=== PATIENT | female | born 1990 | race Caucasian/White ===

== ENCOUNTER 2020-07-08 10:51 | Emergency (ER) | payer BC, SELFPAY ==
[2020-07-08 11:05] VITALS: BP 143/110; PULSE 95; RESP 16; TEMP 36.6; O2SAT 100
--- NOTE | 2020-07-08 11:06 | ED.GENADULT ---
HPI - General Adult General Chief complaint: Ear Stated complaint: ear infection Time Seen by Provider: 07/08/20 11:07 Source: patient and RN notes reviewed Mode of arrival: ambulatory Limitations: no limitations History of Present Illness HPI narrative: 29-year-old female presents with complaints of left ear pain for 1 day. Regine reports increasing ear pressure and pain throughout the night. Hydroperoxide and Advil without relief. Denies swimming or getting water into ear. Denies URI symptoms, No high fevers. Denies injury to the ear. No nasal drainage and congestion. Denies nausea, vomiting, tinnitus, and dizziness. Tolerating po intake well. LMP unknown due to Nexplanon implant control. The patient reports she have not been diagnosed with COVID-19. The patient reports she received 2 [employer]ocom COVID-19 vaccines 5 months ago. The patient reports she is not waiting for the results of a COVID-19 lab test. The patient reports she do not have chills, weakness, or fatigue. The patient reports she do not have a new or worsening cough or shortness of breath. Denies chest pain. The patient reports she do not have any rhinorrhea, congestion, loss of taste or smell, sore throat, abdominal pain, and diarrhea. Denies recent traveling. Denies concerns for COVID-19 or exposures been home with limited outdoor exposure except for essential household needs, work, and return home. At this time, patient is not suspected of having COVID-19. Some parts of this dictation were generated by voice recognition software and may contain typographical and/or grammatical inaccuracies. Related Data Home Medications Medication Instructions Recorded Confirmed albuterol sulfate [ProAir HFA] 1 inh INHALATION QID PRN 07/08/20 07/08/20 metformin 500 mg PO BID 07/08/20 07/08/20 Allergies Allergy/AdvReac Type Severity Reaction Status Date / Time ibuprofen Allergy Unknown Hives / Verified 11/27/18 20:23 Red Face No Known Allergies Allergy Unknown Unverified 11/27/18 20:23 Review of Systems Review of Systems: Narrative: CONSTITUTIONAL: Denies fever, chills, sweats. EYES: Denies visual changes, redness, discharge. ENT: Denies rhinorrhea, congestion, sore throat, ear drainage, itching. Complains of LT otalgia. CARDIOVASCULAR: Denies chest pain, palpitations, edema. RESPIRATORY: Denies dyspnea, wheezing, cough. GASTROINTESTINAL: Denies abdominal pain, nausea, vomiting, diarrhea. SKIN: Denies rash or itching. MUSCULOSKELETAL: Denies acute back pain, joint pain, or myalgia. NEUROLOGIC: Denies numbness or focal weakness. PSYCHIATRIC: Denies anxiety or depression. All systems reviewed & are unremarkable except as noted in HPI and below. [facility] Past Medical History Medical History (Updated 07/09/20 @ 00:00 by Huseyin Silva) Asthma History of prediabetes Morbid obesity Nexplanon in place PCOS (polycystic ovarian syndrome) Surgical History Surgical History (Updated 07/08/20 @ 11:51 by ANISA Baxter) No significant past surgical history Family History Family History Father Hypertension Family history of diabetes mellitus in first degree relative Sibling Patient's sister is in good health Mother Family history of diabetes mellitus in first degree relative Other Diabetes mellitus Social History Social History (Updated 07/08/20 @ 11:51 by ANISA Baxter) Smoking status: Never smoker Tobacco type: cigarettes Second hand tobacco smoke exposure: No Alcohol intake: current Substance use: never Living arrangements: with family Occupation/Education: occupation Gender identity (if verbalized by the patient): Female Comments At time of signature, I have reviewed and agree with nursing past medical, surgical, social, and family history. Please see nursing chart for further information. There is no relevant family history pertine
--- NOTE | 2020-07-08 11:21 | PC.NURSE ---
Left ear irrigated by Vinayak Black NP with warm and water and H2O2
== END 2020-07-08 11:34 | disposition home or self-care (01) ==
PROVIDERS: Emergency Provider Nurse Practitioner Family; PCP Physician Assistant
DX: H66.92 Otitis media, unspecified, left ear (principal); H61.22 Impacted cerumen, left ear; J45.909 Unspecified asthma, uncomplicated; E28.2 Polycystic ovarian syndrome; R73.03 Prediabetes; E66.01 Morbid (severe) obesity due to excess calories; Z68.44 Body mass index [BMI] 60.0-69.9, adult
CPT/HCPCS: 69210; 99213; G0463

== ENCOUNTER → 2021-03-08 04:07 | Outpatient (CLI) | payer BC, SELFPAY ==
[2021-03-08 20:23] LABS: SARS-CoV-2 RNA PCR Positive
== END ==
PROVIDERS: PCP Physician Assistant; Visit Provider Physician Assistant
DX: U07.1 COVID-19 (principal)
CPT/HCPCS: C9803; U0003; U0005

== ENCOUNTER 2022-08-21 12:45 | Emergency (ER) | payer OTHER, SELFPAY ==
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
[2022-08-21 12:59] VITALS: BP 140/97; PULSE 100; RESP 17; TEMP 36.6; O2SAT 100
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
[2022-08-21 14:07] LABS: Anion Gap 5 mmol/L (8-16); Blood Urea Nitrogen 8 mg/dL (7-17); Calcium 8.9 mg/dL (8.4-10.2); Carbon Dioxide 25 mmol/L (22-30); Chloride 105 mmol/L (98-107); Estimated CRCL calculation 227 ml/min; Estimated Glomerular Filt Rate > 60; Glucose 280 mg/dL (65-110); Potassium 4.3 mmol/L (3.4-5.0); Sodium 135 mmol/L (137-145)
== END 2022-08-21 16:14 | disposition home or self-care (01) ==
PROVIDERS: Emergency Provider Preventive Medicine Aerospace Medicine; PCP Physician Assistant
DX: S20.01XA Contusion of right breast, initial encounter (principal); S10.93XA Contusion of unspecified part of neck, initial encounter; V89.2XXA Person injured in unspecified motor-vehicle accident, traffic, initial encounter; W22.11XA Striking against or struck by driver side automobile airbag, initial encounter; J45.909 Unspecified asthma, uncomplicated; M41.9 Scoliosis, unspecified; E66.01 Morbid (severe) obesity due to excess calories; Z68.43 Body mass index [BMI] 50.0-59.9, adult
CPT/HCPCS: 36415; 70498; 71250; 80048; 81025; 99284; Q9967

== ENCOUNTER 2023-07-11 16:42 | Emergency (ER) | payer OTHER, SELFPAY ==
--- NOTE | ~2023-07-11 | CT_ITS ---
EXAMINATION: CTA brain carotid DATE: 07/11/2023 19:29 INDICATION: headache, recent chiropractic treatment TECHNIQUE: Computed tomographic angiography (CTA) of the head was performed without and with 100 mL O mnipaque-350 intravenous contrast. CTA of the neck was performed with intravenous contrast. The dose- length product was 1666.34 mGy-cm. Maximum intensity projection and volume rendered 3D-reconstruction s were created by the technologist on a separate workstation. COMPARISON: CTA neck 08/21/2022. FINDINGS: CT BRAIN: No acute large vessel infarct, intracranial hemorrhage, mass, or hydrocephalus. CTA HEAD: No large vessel occlusion, aneurysm, high flow vascular malformation, nidus or extravasation. CTA NECK: Aortic arch and proximal great vessels: Normal arch anatomy. Right common carotid, carotid bifurcation, and internal carotid artery: Mild noncalcified plaque at t he bifurcation.There is 0% stenosis of the proximal right internal carotid artery relative to normal distal artery lumen diameter (NASCET criteria). Left common carotid, carotid bifurcation, and internal carotid artery: Mild calcified and noncalcifie d plaque at the bifurcation.There is 0% stenosis of the proximal left internal carotid artery relativ e to normal distal artery lumen diameter (NASCET criteria). Vertebral arteries: No significant plaque or stenosis. Left vertebral artery is dominant. 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 IMPRESSION: No acute intracranial process. No large vessel intracranial occlusion, high-grade intracranial stenosis, or aneurysm. No carotid or vertebral artery occlusion, dissection, or significant stenosis. 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 Multiple left thyroid nodules, recommend outpatient thyroid ultrasound for further characterization Reviewed, dictated and finalized at location K. IMPRESSION: No acute intracranial process. No large vessel intracranial occlusion, high-grade intracranial stenosis, or an eurysm. No carotid or vertebral artery occlusion, dissection, or significant stenosis. 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 Mu ltilevel upper thoracic butterfly vertebral bodies. Multiple left thyroid nodules, recommend outpatient thyroid ultrasound for furt her characterization
[2023-07-11 16:47] VITALS: BP 181/114; PULSE 122; RESP 16; TEMP 36.6; O2SAT 98
--- NOTE | 2023-07-11 17:29 | ED.GENADULT ---
HPI - General Adult General Chief complaint: Headache Stated complaint: headache, vision changes Time Seen by Provider: 07/11/23 16:57 Source: patient Mode of arrival: ambulatory Limitations: no limitations History of Present Illness HPI narrative: This is a 32-year-old female with PMH of asthma, PCOS, pre diabetes who presents to the ED with chief complaint of headache for 1 week. Reports history of migraines in the past but this seems to be lasting longer than normal. Reports pain is all across the forehead. Denies sudden onset. Denies any neurologic symptoms such as numbness or weakness. She does note some left visual field change that happened yesterday but has since resolved. Denies any rapid progression of pain. Denies physician or provocative factors. Denies any change in visual acuity. States she took Advil yesterday which helped a little bit but did not last. Denies ataxia, confusion, fevers, chills, neck pain, chest pain, shortness of breath, back pain Related Data Home Medications Medication Instructions Recorded Confirmed albuterol sulfate 90 mcg/actuation 1 inh inhalation QID PRN Shortness 07/08/20 07/08/20 aerosol inhaler (ProAir HFA) Of Breath Or Wheezing metformin 500 mg tablet 500 mg PO BID 07/08/20 07/08/20 Allergies Allergy/AdvReac Type Severity Reaction Status Date / Time No Known Allergies Allergy Unknown Verified 08/21/22 13:02 Review of Systems Review of Systems: All systems as dictated in [facility] Past Medical History Medical History Asthma History of prediabetes Morbid obesity Nexplanon in place PCOS (polycystic ovarian syndrome) Surgical History Surgical History No significant past surgical history Family History Family History Father Hypertension Family history of diabetes mellitus in first degree relative Sibling Patient's sister is in good health Mother Family history of diabetes mellitus in first degree relative Other Diabetes mellitus Social History Social History Smoking status: Never smoker Tobacco type: cigarettes Second hand tobacco smoke exposure: No Alcohol intake: current Substance use: never Living arrangements: with family Occupation/Education: occupation Gender identity (if verbalized by the patient): Female Exam Narrative: GENERAL: Well-appearing, well-nourished, and in no acute distress. HEAD: Normocephalic, atraumatic. EYES: PERRLA and EOMI. Positive photophobia. ENT: Nares clear, no rhinorrhea or epistaxis. Mucous membranes moist. Oropharynx without tonsillar hypertrophy exudate or other lesions. NECK: Supple. No adenopathy or masses. No meningeal signs CHEST: No respiratory distress. Clear to auscultation. No wheezes rales or rhonchi HEART: Regular rate and rhythm. No murmur heard. Normal peripheral pulses. ABDOMEN: Soft, nontender, nondistended, normal active bowel sounds. MSK: Normal range of motion. No edema. SKIN: Warm, dry, no rash. NEURO: Alert and oriented x4. No focal deficits. Cranial nerves 2-12 intact. Visual field intact bilaterally. 5/5 strength and sensation in the upper and lower extremities. Ambulatory without difficulty PSYCH: Normal mood and affect. Course Vital Signs Vital signs: Vital Signs Temperature 97.9 F 07/11/23 16:47 Pulse Rate 122 H 07/11/23 16:47 Respiratory Rate 16 07/11/23 16:47 Blood Pressure 181/114 H 07/11/23 16:47 Pulse Oximetry 98 07/11/23 16:47 Oxygen Delivery Room Air 07/11/23 16:47 Temperature 97.9 F 07/11/23 16:47 Pulse Rate 110 H 07/11/23 18:55 Respiratory Rate 21 H 07/11/23 20:30 Blood Pressure 149/103 H 07/11/23 20:30 Pulse Oximetry 98 07/11/23 20:30 Oxygen Delivery Room Air 07/11/23 16:47
[2023-07-11 17:46] LABS: Basophils Percent Auto 0.4 % (0.2-1.2); Eosinophils Absolute Auto 0.1 K/mm3 (0-0.3); Eosinophils Percent Auto 0.7 % (0-4.4); Hematocrit 45.6 % (37.0-47.0); Hemoglobin 14.8 g/dL (12.0-15.0); Immature Granulocyte Absolute 0.04 K/mm3 (0.00-0.031); Immature Granulocyte Percent A 0.4 % (0-0.5); Lymphocytes Percent Auto 30.3 % (18.3-44.2); Mean Corpuscular HGB Conc 32.5 g/dl (32-36); Mean Corpuscular Hemoglobin 26.2 pg (26-34); Mean Corpuscular Volume 80.9 fl (80-100); Mean Platelet Volume 9.5 fl (7.4-10.4); Monocytes Absolute Auto 0.7 K/mm3 (0.1-0.6); Monocytes Percent Auto 6.4 % (2.6-8.5); Neutrophils Absolute Auto 6.7 K/mm3 (1.3-6.7); Neutrophils Percent Auto 61.8 % (45.5-73.1); Platelet Count Result 307 k/mm3 (150-375); Red Blood Count 5.64 M/mm3 (4.2-5.4); Red Cell Distribution Width 14.5 % (11.5-14.5); White Blood Count 10.9 K/mm3 (4.5-10.0)
[2023-07-11 17:58] LABS: Alanine Aminotransferase 21 U/L (6-35); Albumin Level 4.2 g/dL (3.5-5.1); Alkaline Phosphatase 96 U/L (38-126); Anion Gap 13 mmol/L (4-12); Aspartate Amino Transferase 23 U/L (14-36); Bilirubin,Total 0.3 mg/dL (0.2-1.3); Blood Urea Nitrogen 14 mg/dL (7-17); Carbon Dioxide 18 mmol/L (22-30); Chloride 106 mmol/L (98-107); Estimated CRCL calculation 171 ml/min; Estimated Glomerular Filt Rate > 60; Glucose 364 mg/dL (65-110); Potassium 4.2 mmol/L (3.4-5.0); Sodium 137 mmol/L (137-145)
[2023-07-11] MEDS: SODIUM CHLORIDE 0.9% IV 1,000 ML 999 ML IV CONT ×2 (18:21→18:22)
[2023-07-11] MEDS: KETOROLAC 15 MG/ML VIAL (*BKC) IV PUSH (18:21)
[2023-07-11] MEDS: diphenhydrAMINE HCl INJ 50 MG/ML VIAL 25 MG IV PUSH (18:22)
[2023-07-11] MEDS: PROCHLORPERAZINE EDISYLATE 10 MG/2 ML VIAL IV PUSH (18:22)
[2023-07-11 18:55] VITALS: BP 150/104; PULSE 110; RESP 17; O2SAT 97
[2023-07-11 19:02] LABS: Appearance Urine Turbid (Clear); Bacteria Urine Rare /hpf; Bilirubin Urine Negative (Negative); Blood Urine 3+ (Negative); Color Urine Yellow (Yellow); Glucose Urine UA 3+ mg/dL (Negative); Ketones Urine Negative (Negative); Leukocyte Esterase Ur Negative LEU/UL (Negative); Need Manual Microscopic Reviewed; Nitrate Urine Negative (Negative); Non Pathogenic Casts 0-2; Protein Urine Negative (Negative); RBC Urine 21-50 /hpf (0-2); Squamous Epithelial Cell Urine Few /hpf (Few); Urobilinogen Urine 0.2 mg/dL (<2.0); WBC Urine 0-5 /hpf (0-3); pH Urine 5.5 (5.0-9.0)
[2023-07-11 19:08] LABS: Add Urine Microscopic? YES; Specific Grav Ur 1.044 (1.001-1.035)
[2023-07-11 20:30] VITALS: BP 149/103; RESP 21; O2SAT 98
== END 2023-07-11 20:30 | disposition home or self-care (01) ==
PROVIDERS: Emergency Provider Physician Assistant; PCP Physician Assistant
DX: R51.9 Headache, unspecified (principal); J45.909 Unspecified asthma, uncomplicated; E28.2 Polycystic ovarian syndrome; R73.03 Prediabetes; E66.01 Morbid (severe) obesity due to excess calories; Z68.43 Body mass index [BMI] 50.0-59.9, adult; E04.1 Nontoxic single thyroid nodule; Q76.3 Congenital scoliosis due to congenital bony malformation
CPT/HCPCS: 36415; 70496; 70498; 80053; 81001; 81025; 85025; 96361; 96374; 96375; 99284; J0780; J1200; J1885; J7030; Q9967

== ENCOUNTER 2023-08-12 10:37 | Outpatient (CLI) | payer OTHER, SELFPAY ==
--- NOTE | ~2023-08-12 | US_ITS ---
EXAMINATION: US thyroid DATE: 08/12/2023 11:02 INDICATION: Multinodular goiter. TECHNIQUE: Multiple ultrasound images of the thyroid were obtained. COMPARISON: Neck CTA 07/11/2023 FINDINGS: The right thyroid lobe measures 4.0 x 1.8 x 1.5 cm. The left thyroid lobe measures 4.7 x 2.3 x 1.7 c m. There are multiple subcentimeter nodules in the thyroid. In the right thyroid lobe, there is a 7 mm solid, hypoechoic, wider than tall nodule with smooth margin without echogenic foci (TI-RADS TR4). In the left thyroid lobe, there is a 2.2 cm solid, hypoechoic, wider than tall nodule with ill-defin ed margin without echogenic foci (TR4). IMPRESSION: 1. Multinodular goiter. Ultrasound-guided fine-needle aspiration of the 2.2 cm left thyroid nodule is recommended. Reviewed, dictated and finalized at location E.
== END 2023-08-12 10:38 ==
LOC: MICIMG 10:38
PROVIDERS: PCP Physician Assistant; Visit Provider Physician Assistant
DX: E04.2 Nontoxic multinodular goiter (principal)
CPT/HCPCS: 76536

== ENCOUNTER 2023-09-09 07:30 | Outpatient (CLI) | payer OTHER, SELFPAY ==
[2023-09-09 08:17] LABS: Alanine Aminotransferase 19 U/L (6-35); Albumin Level 3.8 g/dL (3.5-5.1); Alkaline Phosphatase 73 U/L (38-126); Anion Gap 11 mmol/L (4-12); Aspartate Amino Transferase 26 U/L (14-36); Basophils Percent Auto 0.4 % (0.2-1.2); Bilirubin,Total 0.4 mg/dL (0.2-1.3); Blood Urea Nitrogen 11 mg/dL (7-17); Calcium 8.9 mg/dL (8.4-10.2); Carbon Dioxide 19 mmol/L (22-30); Chloride 107 mmol/L (98-107); Cholesterol 155 mg/dL (0-200); Eosinophils Absolute Auto 0.2 K/mm3 (0-0.3); Eosinophils Percent Auto 1.4 % (0-4.4); Estimated Glomerular Filt Rate > 60; Glucose 123 mg/dL (65-110); HDL Direct 71 mg/dL; Hematocrit 40.6 % (37.0-47.0); Hemoglobin 12.7 g/dL (12.0-15.0); Immature Granulocyte Absolute 0.05 K/mm3 (0.00-0.031); Immature Granulocyte Percent A 0.5 % (0-0.5); Lymphocytes Percent Auto 31.1 % (18.3-44.2); Mean Corpuscular HGB Conc 31.3 g/dl (32-36); Mean Corpuscular Hemoglobin 26.4 pg (26-34); Mean Corpuscular Volume 84.4 fl (80-100); Mean Platelet Volume 9.6 fl (7.4-10.4); Monocytes Absolute Auto 0.8 K/mm3 (0.1-0.6); Monocytes Percent Auto 7.4 % (2.6-8.5); Neutrophils Absolute Auto 6.3 K/mm3 (1.3-6.7); Neutrophils Percent Auto 59.2 % (45.5-73.1); Platelet Count Result 301 k/mm3 (150-375); Red Blood Count 4.81 M/mm3 (4.2-5.4); Red Cell Distribution Width 14.4 % (11.5-14.5); Sodium 137 mmol/L (137-145); Triglycerides 188 mg/dL (<150); White Blood Count 10.6 K/mm3 (4.5-10.0)
[2023-09-09 08:28] LABS: LDL Cholesterol Direct 69 mg/dL
[2023-09-09 08:46] LABS: Free T4 Free Thyroxine 0.83 ng/mL (0.78-2.19)
== END 2023-09-09 07:31 | disposition home or self-care (01) ==
LOC: ANHLAB 07:31
PROVIDERS: PCP Physician Assistant; Visit Provider Physician Assistant
DX: Z13.220 Encounter for screening for lipoid disorders (principal); Z79.899 Other long term (current) drug therapy; Z13.29 Encounter for screening for other suspected endocrine disorder
CPT/HCPCS: 36415; 80053; 80061; 84439; 84443; 85025

== ENCOUNTER 2023-10-09 12:27 | Outpatient (CLI) | payer OTHER, SELFPAY ==
--- NOTE | ~2023-10-09 | US_ITS ---
EXAMINATION: US FNA w image guidance DATE: 10/09/2023 13:15 INDICATION: Left thyroid nodule TECHNIQUE: A time-out was performed to verify the patient's name, date of , and procedure to be performed . The procedure and its benefits and risks were discussed with the patient. Risks specifically discus sed included bleeding and infection. The patient understood the risks and agreed to proceed. The neck was prepped and draped in the usual sterile manner. 3 mL 1% lidocaine was used for local anesthesia . 6 passes were made with a 25G needle into the lesion. Appropriate needle location was documented with continuous sonographic guidance. A sterile bandage was applied. There were no immediate compli cations. FINDINGS: Grayscale ultrasound images demonstrate biopsy needles advanced into a 1.8 cm TI RADS 4 nodule in the left thyroid nodule. Review of prior imaging suggests the length on the prior study is slightly over estimated due to inclusion of the immediately adjacent smaller mixed solid and cystic TI RADS 3 nodul e. IMPRESSION: 1. Successful ultrasound-guided fine needle aspiration of the largest TI RADS 4 left thyroid nodule of concern which measures 1.8 cm in maximal dimension on the current study. Reviewed, dictated and finalized at location A.
== END 2023-10-09 12:28 | disposition home or self-care (01) ==
PROVIDERS: PCP Physician Assistant; Visit Provider Physician Assistant
DX: E04.1 Nontoxic single thyroid nodule (principal)
CPT/HCPCS: 10005; 88172; 88173; 88305

== ENCOUNTER 2024-05-04 07:28 | Outpatient (CLI) | payer OTHER, SELFPAY ==
--- OUTSIDE RECORDS SUMMARY | 2024-05-04 07:31 | XMS_ITS | Data Portability ---
[facility] Organization [facility] Juliana Address [address] [place] [address] Care Team Providers Care Payroll Associate Name Role Phone KAVYA SR Primary Care Provider Unavailab le Assessment No assessment recorded. Plan of Treatment Reminders Order Date Submit Date Provider Last Modified By Organization Details Last Modified Time Details Appointments ANY 15 2024 01:45P M MALIHA Gerardo Not available Not available Not available Lab CBC w/ auto diff [address] (Lab), [address] [place] [address], [address], 04/26/2024 10:45:44 CMP, serum or plasma [address] (Lab), [address] [place] [address], [id number], 04/26/2024 10:45:44 lipid panel, serum [address] (Lab), [address] [place] [address], [address], 04/26/2024 10:45:43 TSH + free T4, serum [address] (Lab), [address] [place] [address], [address], 04/26/2024 10:45:44 HbA1c (hemogl obin A1c), blood [address] (Lab), [address] [place] [address], [address], 04/26/2024 10:45:43 prolact in, serum [address] (Lab), [address] [place] [address] [address], [place], [address], 04/26/2024 10:45:44 CBC w/ auto diff [address] (Lab), [address] [place] [address], [place], [address], 04/01/2024 10:38:33 CMP, serum or plasma [address] (Lab), [address] [place] [address], [place], [address], 04/01/2024 10:39:37 lipid panel, serum [address] (Lab), [address] [place] [address], [place], [address], 04/01/2024 10:38:21 TSH + free T4, serum [address] [place] [address] (Lab), [address] [place] [address], [place], [address], 04/01/2024 10:40:08 HbA1c (hemogl obin A1c), blood [address] (Lab), [address] [place] [address], [place], [address], 04/01/2024 10:38:02 prolact in, serum [address] [place] [address] (Lab), [address] [place] [address], [place], [address], 04/01/2024 10:39:51 HbA1c (hemogl obin A1c), blood 2023 024 In-Office Order, Internal Use Only DO Not Attach Compendium DO Not Attach Compendium, Do Not Delete/merge, [id number] 11/01/2023 09:24:34 TSH + free T4, serum 2023 024 [facility], [address] [place] [address], [address], [place], [address], 10/24/2023 12:35:48 CMP, serum or plasma [address] [facility], [address] [place] [address], [address], [place], [address], 10/24/2023 12:35:48 CBC w/ auto diff [address] [facility], [address] [place] [address], [address], [place], [address], 10/24/2023 12:35:48 lipid panel, serum [address] [facility], [address] [place] [address], [address], [place], [address], 10/24/2023 12:35:48 HbA1c (hemogl obin A1c), blood 2023 024 In-Office Order, Internal Use Only DO Not Attach Compendium DO Not Attach Compendium, Do Not Delete/merge, [id number] 08/21/2023 17:26:[address] referra l 2023 024 [facility] - Otolaryngology (Ent), [facility] , [address], [place], [address], 09/19/2023 16:47:40 Procedures fine needle aspirat ion, ultraso und guided, thyroid (PROC) 2023 024 [facility] (Imaging), [address] [facility] [address], [place], [address], 10/13/2023 00:20:39 Surgeries None recorde d. Imaging None recorde d. Medication Orders hydroch lorothi azide 25 mg tablet 2024 025 [facility], [address], [place], [address], 03/29/2024 16:56:32 atorvas tatin 10 mg tablet 2023 024 [facility], [address] [facility], [place], [address], 12/29/2023 17:15:33 Farxiga 10 mg tablet 2023 024 [facility], [address], [place], [address], 12/29/2023 17:15:34 Mounjar o 5 mg/0.5 mL subcuta neous pen injecto r 2023 024 [facility] [address], [address], [place], [address], 01/08/2024 08:29:33 hydroch lorothi azide 25 mg tablet 2023 024 [facility] [address], [address], [place], [address], 12/29/2023 17:25:22 Qvar RediHal er 80 mcg/act uation HFA breath activat ed aerosol 2023 025 [facility], [address], [place], [address], 03/29/2024 16:47:04 losarta n 100 mg tablet 2023 024 [facility] [address], [address], [place], [address], 11/01/2023 09:24:58 amlodip ine 10 mg tablet 2023 024 [facility] [address], [address] [place], [address], 12/29/2023 16:45:14 albuter ol sulfate HFA 90 mcg/act uation aerosol inhaler 2023 024 [facility] [address], [address] [place], [address], 08/21/2023 17:25:08 glimepi ride 2 mg tablet 2023 024 [facility] [address], [address] [place], [address], 08/21/2023 17:26:14 amlodip ine 5 mg tablet 2023 024 [facility] [address], [address] [place], [address], 11/01/2023 09:30:14 Patient TargetsNo targets recorded. Patient Instructions Encounter Date Encounter Id Patient Instructions Last Modified By Organization Details Last Modified Time 08/21/2023 [id number] A healthy lifestyle: care instructions Not available 09/02/2023 17:16:26 03/29/2024 [id number] A healthy lifestyle: care instructions [email or web address] Not available 03/29/2024 16:46:01 Reason for Referral [employer] Referral fo r Dominant nodule of thyroid Referring Physician: Kavya Sr, Internal Medicine, Encounter Date: 08/21/2023 Results Created Date Observation Date Name Description Value Unit Range Abnormal Flag Note LastModifiedBy Organization Detail LastModifiedTime 08/21/1908/21/2023 HbA1c (hemo globi n A1c), blood HbA1c 9.2 Not Available In-Office Order Internal Use Only DO Not Attach Compendium DO Not Attach Compendium, Do Not Delete/merge, [id number] 08/21/2023 17:24:54 11/01/19 24 11/01/2023 HbA1c (hemo globi n A1c), blood HbA1c 7.7% Not Available In-Office Order Internal Use Only DO Not Attach Compendium DO Not Attach Compendium, Do Not Delete/merge, [id number] 11/01/2023 09:24:12 08/14/19 24 08/12/2023 US, thyro id No observ ation record ed. [facility] [address], [place], [address], 08/18/2023 15:40:10 10/09/19 24 10/09/2023 fine needl e aspir ation , ultra sound guide d, thyro id (PROC ) No observ ation record ed. [facility] (Imaging) [address], [place], [address], 11/01/2023 09:30:53 Result Notes None recorded. Problems Name Problem SNOMED Code Status Onset Date Resolution Date Notes Provider Name and Address Organization Details Recorded Time Obesity 105860293 Active 2023 MALIHA Gerardo Attn: Raisa fox,[address] [facility], [place], [address], [place] [facility] 4 17:16:27 Body mass index 40+ - severely obese 121883386 Active 2023 MALIHA Gerardo Attn: Raisa fox,[address] [place], [address], [place] [facility] 4 17:16:28 Long-term drug therapy Active 2023 MALIHA Gerardo Attn: Raisa fox,[address] [facility], [place], [address], [place] [facility] 4 17:16:31 Asthma 313615563 Active 2023 MALIHA Gerardo Attn: Raisa fox,[address] [facility], [place], [address], [place] [facility] 4 17:16:33 Benign essential hypertensio n 4708575 Active 2023 AMLIHA Gerardo Attn: Raisa fox,[address] [facility], [place], [address], [place] [facility] 4 17:16:34 Dominant nodule of thyroid 572348309 Active 2023 MALIHA Gerardo Attn: Raisa g,[address] [address] , [place], [address], [place] [facility] 4 17:16:35 Uncontrolle d type 2 diabetes mellitus 954523962 Active 2023 MALIHA Gerardo Attn: Accountpatricia g,[address] [facility] [place], [place], [address], [place] [facility] 4 17:16:36 Positive screening for depression on PHQ-9 (Patient Health Questionnai re 9) 7787554075609 00 Active 2023 MALIHA Gerardo Attn: Raisa g,[address] [facility], [place], [place], [address], [place] [facility] 4 17:23:31 Scoliosis deformity of spine 256354213 Active 2023 MALIHA Gerardo Attn: Accountpatricia g,[address] [facility], [place], [place], [address], [place] [facility] 4 09:17:49 Hyperlipide [place] 56567336 Active 2023 MALIHA Gerardo Attn: Accountpatricia g,[address] [facility], [place], [place], [address], [place] [facility] 4 09:35:02 New daily persistent headache 0970744123039 05 Active 2023 MALIHA Gerardo Attn: Accountpatricia g,[address] [facility], [place], [place], [address], [place] [facility] 4 17:27:58 Morbid obesity 874261284 Active 2024 MALIHA Gerardo Attn: Accountpatricia g,[address] [facility], [place], [place], [address], [place] [facility] 5 16:45:42 Problem Notes None recorded. Procedures Surgical History Date Name Laterality Status Provider Name and Address Organization Details Recorded Time Diabetic Foot Exam completed Clarissa Contreras [place] - [facility] 11/01/2023 09:03:52 Imaging Results Imaging Date Name Status LastModified by Organiz ation Details LastModified Time 08/12/2023 US, thyroid completed [facility] [address], [place], [address], 08/18/2023 15:40:10 10/09/2023 fine needle aspiration, ultrasound guided, thyroid (PROC) completed [address] (Imaging) [address], [place], [address], 11/01/2023 09:30:53 Procedure Notes None recorded. Medical Equipment None Reported. Allergies Allergen ID Allergen Name Allergen Category Reaction Reaction Severity Criticality Documentation Date Start Date Code Code System Note Provider Name and Address Organization Details Recorded Time 17870831 metformin medicatio n other mild low 12/29/2023 6809 RxNorm unabl e to swall ow Not Available Not Available Not Available Medications Name Sig Start Date Stop Date Status Note LastModified by Organization Details LastModified Time losartan 50 mg tablet TAKE 1 TABLET BY MOUTH ONCE DAILY 07/11 completed Not Available Not Available Not Available tizanidin e 2 mg tablet TAKE 1 TO 2 TABLETS BY MOUTH THREE TIMES DAILY NEEDED active Not Available Not Available No t Available albuterol sulfate 2.5 mg/3 mL (0.083 %) solution for nebulizat ion Inhale 3 mL 3 times a day by nebuliza tion route as needed. active Not Available Not Available No t Available atorvasta tin 10 mg tablet Take 1 tablet every day by oral route. active Not Available Not Available No t Available meloxicam 15 mg tablet TAKE 1 TABLET BY MOUTH ONCE DAILY active Not Available Not Available No t Available amlodipin e 5 mg tablet TAKE 1 TABLET BY MOUTH ONCE DAILY 10/31 completed Not Available Not Available Not Available tramadol 50 mg tablet TAKE 1 TABLET BY MOUTH EVERY 8 HOURS NEEDED FOR MODERATE OR MORE SEVERE PAIN active Not Available Not Available No t Available glimepiri de 2 mg tablet TAKE 1 TABLET BY MOUTH TWICE DAILY WITH MEALS active Not Available Not Available No t Available amlodipin e 10 mg tablet Take 1 tablet every day by oral route for 90 days. active Not Available Not Available No t Available metformin 1,000 mg tablet TAKE 1 TABLET BY MOUTH TWICE DAILY WITH MEALS 08/20 completed Not Available Not Available Not Available losartan 25 mg tablet TAKE 1 TABLET BY MOUTH ONCE DAILY 07/11 completed Not Available Not Available Not Available hydrochlo rothiazid e 25 mg tablet Take 1 tablet every day by oral route in the morning. 2024 active Not Available Not Available Not Avai lable albuterol sulfate HFA 90 mcg/actua tion aerosol inhaler INHALE 2 PUFFS BY MOUTH EVERY 4 HOURS NEEDED active Not Available Not Available No t Available losartan 100 mg tablet Take 1 tablet every day by oral route. active Not Available Not Available No t Available Flovent HFA 110 mcg/actua tion aerosol inhaler INHALE 2 PUFFS BY MOUTH TWICE DAILY 08/20 completed Not Available Not Available Not Available Symbicort 160 mcg-4.5 mcg/actua tion HFA aerosol inhaler Inhale 2 puffs twice a day by inhalati on route. 2023 active Not Available Not Available Not Avai lable L norgest/E E 0.15-0.02 mg/0.15-0 .025mg/0. 15-0.03mg /EE 0.01 mg tabs,3mo TAKE 1 TABLET BY MOUTH ONCE DAILY active Not Available Not Available No t Available Farxiga 10 mg tablet Take 1 tablet every day by oral route. 2023 active Not Available Not Available Not Avai lable Qvar RediHaler 80 mcg/actua tion HFA breath activated aerosol Inhale 2 puffs twice a day by inhalati on route. 03/29 completed Patient is no longer taking this medicati on. Not Available Not Available Not Available levonorge strel 0.1 mg-ethiny l estradiol 0.02 mg (21)/iron (7) tablet Take 1 tablet every day by oral route. 12/28 completed Not Available Not Available Not Available Annovera 0.15 mg-0.013 mg/24 hr vaginal ring INSERT 1 RING INTO VAGINA DIRECTED 12/28 completed Not Available Not Available Not Available Mounjaro 7.5 mg/0.5 mL subcutane ous pen injector Inject 7.5 mg by subcutan eous route. 2024 active Not Available Not Available Not Cailin felix Mounjaro 5 mg/0.5 mL subcutane ous pen injector INJECT 1 SYRINGE SUBCUTAN EOUSLY ONCE A WEEK active Not Available Not Available No t Available Dexcom G7 Sensor device USE DIRECTED active Not Available Not Available No t Available Vitals Date Recorded Body weight Body mass index (BMI) Body height Heart rate Oxygen saturation Oxygen saturation in Arterial blood by Pulse oximetry Systolic blood pressure Diastolic blood pressure Provider Name and Address Organization Details Last Updated DateTime 4 171315. 2 g 51.7 kg/m2 157.48 cm 105 /min 98 % 98 % 164 mm[Hg] 110 mm[Hg] Kiersten Moreno MA [facility] 4 16:51:31 Date Recorded Systolic blood pressure Diastolic blood pressure Provider Name and Address Organization Details Last Updated DateTime 08/21/2023 148 mm[Hg] 108 mm[Hg] MALIHA Gerardo Attn: Accounting,[address] [place], [address], [facility] 08/21/2023 17:14:27 Date Recorded Body height Body mass index (BMI) Body weight Respiratory rate Oxygen saturation Oxygen saturation in Arterial blood by Pulse oximetry Heart rate Systolic blood pressure Diastolic blood pressure Provider Name and Address Organization Details Last Updated DateTime 4 157.48 cm 54.4 kg/m2 409181. 51 g 20 /min 100 % 100 % 93 /min 136 mm[Hg] 88 mm[Hg] Clarissa Contreras MA [facility] 4 09:02:40 Date Recorded Systolic blood pressure Diastolic blood pressure Systolic blood pressure Diastolic blood pressure Provider Name and Address Organization Details Last Updated DateTime 11/01/2023 160 mm[Hg] 100 mm[Hg] 160 mm[Hg] 100 mm[Hg] MALIHA Miles Attn: Accounting ,[address] [place], [address] , [facility] 4 09:31:29 Date Recorded Body height Body mass index (BMI) Body weight Oxygen saturation Oxygen saturation in Arterial blood by Pulse oximetry Heart rate Systolic blood pressure Diastolic blood pressure Provider Name and Address Organization Details Last Updated DateTime 4 157.48 cm 55.4 kg/m2 404735. 49 g 98 % 98 % 102 /min 140 mm[Hg] 88 mm[Hg] Clarissa Contreras MA [facility] 4 16:50:34 Date Recorded Respiratory rate Systolic blood pressure Diastolic blood pressure Systolic blood pressure Diastolic blood pressure Provider Name and Address Organization Details Last Updated DateTime 4 18 /min 160 mm[Hg] 90 mm[Hg] 160 mm[Hg] 90 mm[Hg] MALIHA Gerardo Attn: Raisa ruddy,[address] [facility], [place], [address], [facility] 4 17:30:13 Date Recorded Body height Body mass index (BMI) Body weight Heart rate Oxygen saturation Oxygen saturation in Arterial blood by Pulse oximetry Systolic blood pressure Diastolic blood pressure Provider Name and Address Organization Details Last Updated DateTime 5 157.48 cm 55.3 kg/m2 045007. 33 g 105 /min 98 % 98 % 162 mm[Hg] 90 mm[Hg] Kiersten Moreno MA [facility] 5 16:26:10 Social History Question Answer Notes LastModified by Organizat ion Details LastModified Time Tobacco Smoking Status Never Smoker Kiersten Moreno MA null, [facility] 08/21/2023 16:43:59 What Is Your Level Of Alcohol Consumption? Occasional Information not available 08/21/2023 How Many Years Have You Consumed Alcohol? 10 Information not available 08/21/2023 Are You Blind Or Do You Have Difficulty Seeing? No Information not available 08/21/2023 What Is Your Level Of Caffeine Consumption? Heavy Information not available 08/21/2023 In The 14 Days Before Symptom Onset, Have You Had Close Contact With A Laboratory-confir med COVID-19 While That Case Was Ill? No Information not available 08/21/2023 In The 14 Days Before Symptom Onset, Have You Had Close Contact With A Person Who Is Under Investigation For COVID-19 While That Person Was Ill? No Information not available 08/21/2023 Have You Been To An Area Known To Be High Risk For COVID-19? No Information not available 08/21/2023 Are You Currently Employed? Yes Information not available 08/21/2023 Are You Deaf Or Do You Have Serious Difficulty Hearing? No Information not available 08/21/2023 What Type Of Diet Are You Following? 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 No Information not available 08/21/2023 What Was The Date Of Your Most Recent Tobacco Screening? 03/29/2024 Information not available 03/29/2024 What Is Your Relationship Status? Single Information not available 08/21/2023 Do You Use Your Seat Belt Or Car Seat Routinely? Yes Information not available 08/21/2023 Do You Have Smoke And Carbon Monoxide Detectors In Your Home? Yes Information not available 08/21/2023 Do You Feel Stressed (tense, Restless, Nervous, Or Anxious, Or Unable To Sleep At Night)? [id number] Information not available 08/21/2023 Do You Use Any Illicit Or Recreational Drugs? No Information not available 08/21/2023 Do You Use Sunscreen Routinely? Yes Information not available 08/21/2023 Has Tobacco Cessation Counseling Been Provided? No Information not available 08/21/2023 Do You Or Have You Ever Used Any Other Forms Of Tobacco Or Nicotine? No Information not available 08/21/2023 Sex: Female Functional Status Question Answer Note LastModified by Organization D etails LastModified Time Are you able to care for yourself? Yes Information n ot available 08/21/2023 What is your exercise level? None Information not available 08/21/2023 Mental Status None recorded. Family History Relationship Description Onset Age of this Age Resolved Age Notes LastModified by Organization Details LastModified Time Mother Diabetes mellitus mebyma Not available 2023 16:43:09 Mother Disorder of thyroid gland mebyma Not available 2023 16:43:19 Father Diabetes mellitus mebyma Not available 2023 16:43:09 Father Hypertensive disorder mebyma Not available 2023 16:43:27 Father Hypercholest erolemia mebyma Not available 2023 16:43:31 Sister Disorder of thyroid gland mebyma Not available 2023 16:43:19 Sister Migraine mebyma Not available 0 08/21/2023 16:43:38 Medical History Condition Response High Blood Pressure Y High Cholesterol Y Asthma Y Gynecological History Statement/Question Response Menses Monthly N Duration of Flow (days) Current Control Method BCPs Date of LMP 11/23/2023 LMP Definite Obstetrics History GPAL:G 0 P 0 0 0 0 Immunizations Vaccine Type Date Status Note Provider Nam e and Address Organization Details Recorded Time Influenza, split virus, quadrivalent, preservative 0 completed Clarissa Contre[place], [place] [facility] 12/18/2023 10:47:10 COVID-19, mRNA, LNP-S, PF, 30 mcg/0.3 mL dose 1 completed Clarissa Contre[place] [facility] 12/18/2023 10:47:10 COVID-19, mRNA, LNP-S, PF, 30 mcg/0.3 mL dose 0 completed Clarissa Contre[place] [facility] 12/18/2023 10:47:10 COVID-19, mRNA, LNP-S, PF, 30 mcg/0.3 mL dose, tricia-sucrose 2 completed Clarissa Contre[place] [facility] 12/18/2023 10:47:10 COVID-19, mRNA, LNP-S, bivalent, PF, 30 mcg/0.3 mL dose 2 completed Clarissa Contre[place] [facility] 12/18/2023 10:47:10 COVID-19, mRNA, LNP-S, PF, 50 mcg/0.5 mL 3 completed Clarissa Contreras [place], [place] 12/18/2023 10:47:10 Influenza, split virus, quadrivalent, PF 1 completed EILEEN Partida, SINDI - [facility] 12/18/2023 10:47:10 Influenza, split virus, quadrivalent, PF 2 completed Nestorbilllarry BenEILEEN, SINDI - [facility] 12/18/2023 10:47:10 influenza, unspecified formulation 4 completed Nestorbilllarry BenEILEEN rosa, SINDI - [facility] 12/18/2023 10:49:25 COVID-19, mRNA, LNP-S, PF, tricia-sucrose, 30 mcg/0.3 mL 4 completed Clarissa SepulvedaerEILEEN, SINDI - [facility] 01/22/2024 09:56:07 Past Encounters Encounter ID Performer Location Encounter Start Date Encounter Closed Date Diagnosis/Indication Diagnosis SNOMED-CT Code Diagnosis ICD10 Code Diagnosis Note [id number] MALIHA Gerardo [facility] [place] [address] [place] [address] 08/21/2023 16:22:50 08/21/2023 17:37:56 Dominant nodule of thyroid 827355939 E04.1 Referral for fine-needl e aspiration of the left-sided thyroid nodule and follow-up referral to Ear Nose and Throat placed today. Uncontroll ed type 2 diabetes mellitus 713299106 E11.65 Fingerstic k A1c in the office is 9.2% today. Continue Farxiga 10 mg daily and add glimepirid e 2 mg twice daily with meal. Patient would also like to have a [employer] G7 testing device. Benign ess ential hypertension 4202916 I10 Continue losartan 100 mg daily and add amlodipine 5 mg daily for persistent blood pressure elevation today in the 140/108 range. Asthma 021007414 J45.90 9 Refill given on albuterol HFA inhaler to use as needed Cholesterol screening 27 0285595 Z13.220 Fasting lipid panel is due Long-term drug therapy 669275668 Z79.899 Routine CMP and CBC labs are due Thyroid di sorder screening 006008238 Z13.29 Routine thyroid function testing is ordered Body mass index 40+ - severely obese 757574411 Z68.43 Obesity 411747806 E66.8 discussed healthy diet, exercise, controllin g carbohydra yovany and added sugars in the diet Positive s creening for depression on PHQ-9 (Patient Health Questionnaire 9) 9592971794 04407 Z13.31 Patient scored 7 on screening today. She feels stable with her mental health. [id number] MALIHA Gerardo [facility] [address] [place] [address] 11/01/2023 08:47:30 11/01/2023 10:09:14 Benign essential hypertension 6102476 I10 Continue losartan 100 mg daily and increase to amlodipine 10mg daily for persistent blood pressure elevation today Uncontroll ed type 2 diabetes mellitus 232879042 E11.65 Fingerstic k A1c 7.7% in the office is today. Continue Farxiga 10 mg daily and add glimepirid e 2 mg twice daily with meal.Novem angi eye appt with [facility] in [place]. Dominant n odule of thyroid 982049778 E04.1 all benign on FNA. Asthma 842387054 J45.90 9 Refill given on albuterol HFA inhaler to use as needed Long-term drug therapy 137637073 Z79.899 order labs at next appt Dec 28 appt. Body mass index 40+ - severely obese 109026450 Z68.43 bmi 54.4 Obesity 384227470 E66.8 discussed healthy diet, exercise, controllin g carbohydra yovany and added sugars in the diet Adult [facility] th examination 338101915 Z00.01 annual wellness exam completed. Scoliosis deformity of spine 993338851 M41.9 History reviewed of scoliosis Hyperlipidemia 96865943 E78.5 lipids are well controlled on atorvastat in 10mg daily. [id number] MALIHA Gerardo [facility] [address] [place] [address] 12/29/2023 16:24:03 01/17/2024 14:57:55 Uncontrolled type 2 diabetes mellitus 173581940 E11.65 Continue Farxiga 10 mg daily and add glimepirid e 2 mg twice daily with meal. Trial of Mounjaro 2.5 mg once weekly sample for a free month given. She would then increase to Mounjaro 5 mg weekly thereafter .feb 08 eye appt with Netta Pennington in [place]. Benign ess ential hypertension [id number] I10 Continue losartan 100 mg daily and amlodipine 10mg daily and add hydrochlor othiazide 25 mg daily for persistent blood pressure elevation. Hopefully this will also help her headaches that are related to the elevated pressure. Hyperlipidemia [id number] E78.5 lipids are well controlled on atorvastat in 10mg daily. Refill given on medication and repeat labs will be due fasting in February Asthma [id number] J45.90 9 Stable on albuterol HFA inhaler to use as needed Dominant n odule of thyroid 862432339 E04.1 all benign on FNA. Scoliosis deformity of spine 082545780 M41.9 History reviewed of scoliosis Body mass index 40+ - severely obese [id number] Z68.43 bmi 54.4; routine thyroid function testing ordered for February labs Obesity 955203454 E66.9 discussed healthy diet, exercise, controllin g carbohydra yovany and added sugars in the diet Long-term drug therapy [id number] Z79.899 CBC and CMP due again in February New daily persistent headache [id number] 94747 G44.52 Screening serum prolactin level will also be ordered on the next labs [id number] MALIHA Gerardo [facility] [address] [place] [address] 03/29/2024 16:16:54 04/01/2024 09:53:28 Body mass index 40+ - severely obese [id number] Z68.43 bmi 55.3.; routine thyroid function testing ordered for February labs Morbid obesity 872750393 E66.01 Asthma 050527157 J45.90 9 Stable on albuterol HFA inhaler to use as needed, also on generic Symbicort therapy. We are trying to get a nebulizer for her to use 3 times a day on an as-needed basis for asthma exacerbati ons. She does not use this daily but she does need it for 3 times a day when her asthma is flaring up and she is wheezing. She already has the albuterol solution she just needs to get the actual nebulizer machine. Benign ess ential hypertension 8241478 I10 Continue losartan 100 mg daily and amlodipine 10mg daily and add hydrochlor othiazide 25 mg daily for persistent blood pressure elevation. 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 Uncontroll ed type 2 diabetes mellitus 247023738 E11.65 stable on mounjaro 5mg daily. plan to boost to mounjaro 7.5mg weekly. average 145 the last 2 weeks of CGM readings. Hyperlipidemia 19029517 E78.5 lipids are well controlled on atorvastat in 10mg daily. Refill given on medication and repeat labs will be due fasting in February New daily persistent headache [id number] 43280 G44.52 Screening serum prolactin level will also be ordered on the next labs Long-term drug therapy 119050879 Z79.899 CBC and CMP due again in February Health Concerns Section Related Observation LastModified by Organization Detai ls LastModified Time None Recorded Concern Status LastModified by Organization Details LastModified Time None Recorded Advance Directives Directive None Recorded Payers Encounter Date Sequence Insurance Name Policy Number Policy Alegria Covered Member ID Alegria Member ID Guarantor Name 08/21/2023 1 [employer] [id number] Regine Galavzi [id number] Regine Galaviz 11/01/2023 1 UMR [id number] Regine Galaviz [id number] Regine Galaviz 12/29/2023 1 UMR [id number] Regine Galaviz [id number] Regine Galaviz 03/29/2024 1 UMR [id number] Regine Galaviz [id number] Regine Galaviz Notes Date Note Type Note Provider Name and Address Organization Details Recorded Time 08/21/19 24 text/htm l Asthma F/UReported bypatient.Notes:Patient is taking albuterol inhaler as needed and QVAR ready inhaler which is what insurance will cover. Asthma is stable at this time.DiabetesReported bypatient.Notes:Patient is taking Farxiga 10 mg daily, she has been unable to tolerate metformin therapy due to GI issuesHyperlipidemiaReported bypatient.Notes:Patient has underlying hyperlipidemia and is taking atorvastatin 10 mg daily. She is due for labs.HypertensionReported bypatient.Notes:Patient was increased to 100 mg of losartan via case note. Blood pressure is still elevated today. This was likely the cause of her acute headache that led her to the emergency room for evaluation. CT evaluation of the head did not show any acute intracranial abnormality.Thyroid/Parathyroid NoduleReported bypatient.Notes:CT of the head brain and neck in the emergency room showed a dominant thyroid nodule on the left side that requires follow-up MALIHA Gerardo Attn: Accounting, [address] [facility], [place], [address], [facility] 09/02/2023 17:23:48 11/01/19 24 text/htm l Asthma F/UReported bypatient.Notes:Patient is taking albuterol inhaler as needed and QVAR ready inhaler which is what insurance will cover. Asthma is stable at this time.DiabetesReported bypatient.Notes:Patient is taking Farxiga 10 mg daily, she has been unable to tolerate metformin therapy due to GI issuesHeadacheReported bypatient.Notes:Pt. states that she has still being having headaches daily, or sometimes it goes into a MigraineHyperlipidemiaReported bypatient.Notes:Patient has underlying hyperlipidemia and is taking atorvastatin 10 mg daily. She is due for labs.HypertensionReported bypatient.Notes:Patient was increased to 100 mg of losartan via case note. Blood pressure is still elevated today.Thyroid/Parathyroid NoduleReported bypatient.Notes:CT of the head brain and neck in the emergency room showed a dominant thyroid nodule on the left side that requires follow-up and biopsy came back benign MALIHA Gerardo Attn: Accounting, [address] [facility], [place], [address], [facility] 11/05/2023 22:54:25 12/29/19 24 text/htm l Asthma F/UReported bypatient.Notes:Patient is taking albuterol inhaler as needed and QVAR ready inhaler which is what insurance will cover. Asthma is stable at this time.DiabetesReported bypatient.Notes:Patient is taking Farxiga 10 mg daily, she has been unable to tolerate metformin therapy due to GI issuesHeadacheReported bypatient.Notes:Pt. states that she has still being having headaches daily, or sometimes it goes into a MigraineHyperlipidemiaReported bypatient.Notes:Patient has underlying hyperlipidemia and is taking atorvastatin 10 mg daily. She is due for labs.HypertensionReported bypatient.Notes:Patient was increased to 100 mg of losartan and on amlodipine 10 mg dailyThyroid/Parathyroid NoduleReported bypatient.Notes:CT of the head brain and neck in the emergency room showed a dominant thyroid nodule on the left side that requires follow-up and biopsy came back benign MALIHA Gerardo Attn: Accounting, [address] [facility], [place], [address], [facility] 01/14/2024 19:00:50 03/29/19 25 text/htm l Asthma F/UReported bypatient.Notes:Patient is taking albuterol inhaler as needed and now on generic Symbicort therapy. She is still trying to get a nebulizer treatment but there were issues getting it with her insuranceDiabetesReported bypatient.Notes:Patient is taking Farxiga 10 mg daily, she has been unable to tolerate metformin therapy due to GI issuesHypertensionReported bypatient.Notes:Patient was increased to 100 mg of losartan and on amlodipine 10 mg daily MALIHA Gerardo Attn: Accounting, [address] [facility], [place], [address], [facility] 03/29/2024 18:32:50 OBGyn Episode No OBEpisode recorded.
--- OUTSIDE RECORDS SUMMARY | 2024-05-04 07:31 | XMS_ITS | Patient Health Record ---
Author Organization [facility] Address [address] [place] [address] Care Team Providers Care Pbx Supervisor Name Role Phone Kai Wiggins Primary Care Provider [phone] Reason For Referral No Information Immunizations Vaccine Route Administration Date Status Comme nts COVID-19 Vaccine Pfizer 2ND IM Intramuscular 02/15/2020 Administered EUA dated: 01/2020. 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 Patient tolerated well. 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 EUA given. Patient tolerated well. Plan Of Treatment No Information
--- OUTSIDE RECORDS SUMMARY | 2024-05-04 07:31 | XMS_ITS | Clinical Summary ---
Author Organization [facility] Address [address] [place] [address] Phone Care Team Providers Care Plug Maker Name Role Phone Kavya Perez Primary Care Provider [phone] Medications traMADol (ULTRAM) 50 MG TabletIndicatio ns:Chest wall pain Take 1 Tablet by mouth every 8 hours as needed for Moderate or more severe pain. 12 Tablet 08/19/2022 Active Social History Tobacco Use Types Packs/Day Years Used Date Smoking Tobacco: Never Smokeless Tobacco: Never Tobacco Cessation:Counseling Given: Not Answered Comments Unknown Sex and Gender Information Value Date Recorded Sex Assigned at Not on file Legal Sex Female 10:33 PM CDT Gender Identity Not on file Sexual Orientation Not on file Last Filed Vital Signs Vital Sign Reading Time Taken Comments Blood Pressure 160/96 08/19/2022 7:08 PM CDT Pulse 90 08/19/2022 7:08 PM CDT Temperature 36.4 C (97.5 F) 08/19/2022 7:08 PM CDT Respiratory Rate 17 08/19/2022 7:08 PM CDT Oxygen Saturation 98% 08/19/2022 7:08 PM CDT Inhaled Oxygen Concentration - - Weight 142.7 kg (314 lb 9.5 oz) 08/19/2022 5:01 PM CDT Height 157.5 cm (5' 2 ) 08/19/2022 5:01 PM CDT Body Mass Index 57.54 08/19/2022 5:01 PM CDT Plan of Treatment Health Maintenance Due Date Last Done Comments Hepatitis C Virus (HCV) Screening 1990 TdaP Immunization 1990 Hepatitis B Immunization (1 of 3 - 19+ 3-dose series) 2009 Pap Smear 11/08/2011 Cervical Cancer Screening (CCS) 2020 HPV/Cotest 2020 Influenza Immunization (#1) 10/29/202310/29, 11/11/2020, 11/13/2019 SARS-COV-2 Immunization ( season) 2023 12/26/2021, 04/09/2021, 03/06/2020, Additional history exists Respiratory Syncytial Virus (RSV) Immunization (Adult) (1 - 1-dose 75+ series) 2065 Meningococcal Immunization (ACWY) Aged Out No longer eligible based on patient's age to complete this topic Pneumococcal Immunization Combined Aged Out No longer eligible based on patient's age to complete this topic Rotavirus Immunization Aged Out No lo nger eligible based on patient's age to complete this topic Insurance [facility] [place] [employer] Member Subscriber Plan / Payer (Ef fective 2022-Present) Name:Regine Galaviz Member ID:[id number] Relation to Subscriber:Self Name:Regine Galaviz Subscriber ID:[id number] Payer ID:PAPER Group ID:Not on file Type:Not on file Address: [facility] [address] [phone] Care Teams Plug Maker Relationship Specialty Start Date End Date Kavya Perez PA PCP - General Family Medicine 08/19/22
--- OUTSIDE RECORDS SUMMARY | 2024-05-04 07:32 | XMS_ITS | Data Portability ---
Author Organization [facility] [employer], Main Office Address [address] [place] [address] Assessment No assessment recorded. Plan of Treatment Reminders Order Date Submit Date Provider Last Modified By Organization Details Last Modified Time Details Appointments None recorded. Lab TSH + free T4, serum 2022 023 [email or web address] [facility], [address], [place], [address], 4 08:53:34 microalbumi n, urine 2022 023 [email or web address] [facility], [address], [place], [address], 4 08:53:34 HbA1c (hemoglobin A1c), blood 2022 023 [email or web address] [facility], [address], [place], [address], 4 08:53:35 CBC w/ auto diff 2022 023 [email or web address] [facility], [address], [place], [address], 4 08:53:34 CMP, serum or plasma 2022 023 [email or web address] [facility], [address], [place], [address], 4 08:53:34 lipid panel, serum 2022 023 [email or web address] [facility], [address], [place], [address], 4 08:53:34 Referral None recorded. Procedures None recorded. Surgeries None recorded. Imaging None recorded. Medication Orders Farxiga 10 mg tablet 2022 023 [facility] [address] [place], [address], 3 15:47:07 losartan 50 mg tablet 2022 023 [facility] [address] [place], [address], 3 15:47:05 atorvastati n 10 mg tablet 2022 023 [facility] [address] [place], [address], 3 15:47:04 Patient TargetsNo targets recorded. Patient InstructionsNo instructions recorded. Reason for Referral None Reported. Results Created Date Observation Date Name Description Value Unit Range Abnormal Flag Note LastModifiedBy Organization Detail LastModifiedTime Result Notes None recorded. Problems Name Problem SNOMED Code Status Onset Date Resolution Date Notes Provider Name and Address Organization Details Recorded Time Benign essential hypertension 6490444 Active 2021 Not Available [facility] 3 19:14:24 Asthma 799271868 Active 2017 Not Available [facility] 3 19:14:24 Type 2 diabetes mellitus 08543758 Active 2017 Not Available [facility] 3 19:14:24 Uncontrolled type 2 diabetes mellitus 933814457 Active 2021 Not Available [facility] 3 19:14:24 Hyperlipidemi a 06408218 Active 2019 Not Available [facility] 3 19:14:24 Notes:COVID-19 pos 03/08/21 Problem Notes None recorded. Medical Equipment None Reported. Allergies No known drug allergies Medications Name Sig Start Date Stop Date Status Note LastModified by Organization Details LastModified Time losartan 50 mg tablet Take 1 tablet every day by oral route. active Not Available Not Available No t Available Qvar 80 mcg/actuati on Metered Aerosol oral inhaler INHALE 2 PUFFS PO BID 04/04 completed Not Available Not Available Not Available atorvastati n 10 mg tablet TAKE 1 TABLET BY MOUTH AT BEDTIME active Not Available Not Available No t Available azithromyci n 250 mg tablet TK 2 TS PO ON DAY 1, THEN TK 1 T PO D FOR 4 DAYS 08/12 completed Not Available Not Available Not Available tramadol 50 mg tablet TAKE 1 TABLET BY MOUTH EVERY 8 HOURS NEEDED FOR MODERATE OR MORE SEVERE PAIN 02/06 completed Not Available Not Available Not Available triamcinolo ne acetonide 0.1 % topical cream APPLY A THIN LAYER TO THE wrist area BY TOPICAL ROUTE 2 TIMES PER DAY PRN only active Not Available Not Available No t Available metformin 1,000 mg tablet TAKE 1 TABLET BY MOUTH TWICE DAILY WITH MEALS active Not Available Not Available No t Available losartan 25 mg tablet TAKE 1 TABLET BY MOUTH ONCE DAILY 02/06 completed Not Available Not Available Not Available orphenadrin e citrate ER 100 mg tablet,exte nded release 11/11 completed Not Available Not Available Not Available ergocalcife rol (vitamin D2) 1,250 mcg (50,000 unit) capsule 06/23 completed Not Available Not Available Not Available ibuprofen 600 mg tablet TK 1 T TID WITH FOOD 08/12 completed Not Available Not Available Not Available lovastatin 20 mg tablet TK 1 T PO QD IN THE UMESH 08/12 completed Not Available Not Available Not Available albuterol sulfate HFA 90 mcg/actuati on aerosol inhaler INHALE 2 PUFFS BY MOUTH EVERY 4 TO 6 HOURS NEEDED active Not Available Not Available No t Available naproxen 500 mg tablet PRN 05/12 completed Not Available Not Available Not Available TriNessa (28) 0.18 mg(7)/0.215 mg(7)/0.25 mg(7)-35 mcg tablet take as directed 10/24 completed Not Available Not Available Not Available Flovent HFA 110 mcg/actuati on aerosol inhaler INHALE 2 PUFFS BY MOUTH TWICE DAILY 03/24 completed Not Available Not Available Not Available Invokana 100 mg tablet TAKE 1 TABLET BY MOUTH EVERY DAY( DISCONTIN UE FARXIGA 0 08/12 completed Not Available Not Available Not Available Farxiga 10 mg tablet TAKE 1 TABLET BY MOUTH ONCE DAILY active Not Available Not Available No t Available Farxiga 5 mg tablet Take 1 tablet every day by oral route. 06/08 completed Not Available Not Available Not Available Qvar RediHaler 80 mcg/actuati on HFA breath activated aerosol INHALE 2 PUFFS BY MOUTH TWICE DAILY active Not Available Not Available No t Available Annovera 0.15 mg-0.013 mg/24 hr vaginal ring INSERT 1 RING INTO VAGINA DIRECTED active Not Available Not Available No t Available ID NOW COVID-19 Test Kit TEST DIRECTED TODAY 08/12 completed Not Available Not Available Not Available Vitals Date Recorded Body mass index (BMI) Body height Oxygen saturation Oxygen saturation in Arterial blood by Pulse oximetry Heart rate Respiratory rate Body temperature Body weight Systolic blood pressure Diastolic blood pressure Provider Name and Address Organization Details Last Updated DateTime 2 57.8 kg/m2 157.48 cm 96 % 96 % 91 /min 16 /min 97.9 [degF] 647982. 91 g 140 mm[Hg] 80 mm[Hg] Not Available [facility] 3 19:14:00 Date Recorded Body mass index (BMI) Body height Oxygen saturation Oxygen saturation in Arterial blood by Pulse oximetry Heart rate Respiratory rate Body temperature Body weight Systolic blood pressure Diastolic blood pressure Provider Name and Address Organization Details Last Updated DateTime 2 58.3 kg/m2 157.48 cm 98 % 98 % 108 /min 16 /min 98.2 [degF] 379571. 25 g 138 mm[Hg] 88 mm[Hg] Not Available [facility] 3 19:14:00 Date Recorded Body height Body temperature Body mass index (BMI) Body weight Respiratory rate Oxygen saturation Oxygen saturation in Arterial blood by Pulse oximetry Heart rate Systolic blood pressure Diastolic blood pressure Provider Name and Address Organization Details Last Updated DateTime 3 157.48 cm 97.2 [degF] 54.9 kg/m2 091780. 71 g 16 /min 98 % 98 % 97 /min 128 mm[Hg] 72 mm[Hg] SUSIE Deleon [place] - [facility] 15:22:48 Social History Question Answer Notes LastModified by Organizat ion Details LastModified Time Tobacco Smoking Status Never Smoker SUSIE Deleon, [facility] 02/06/2023 15:17:23 Do You Have An Advance Directive? No [id number] Information not available 04/27/2022 What Is Your Level Of Alcohol Consumption? Occasional [id number] Information not available 04/27/2022 What Is Your Level Of Caffeine Consumption? Heavy [id number] Information not available 04/27/2022 In The 14 Days Before Symptom Onset, Have You Had Close Contact With A Laboratory-confir med COVID-19 While That Case Was Ill? No [email or web address] Information not available 02/06/2023 In The 14 Days Before Symptom Onset, Have You Had Close Contact With A Person Who Is Under Investigation For COVID-19 While That Person Was Ill? No [email or web address] Information not available 02/06/2023 Are You Currently Employed? Yes [email or web address] Information not available 02/06/2023 What Type Of Diet Are You Following? 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 No [email or web address] Information no t available 02/06/2023 Are There Any Guns Present In Your Home? No [email or web address] Information not available 02/06/2023 Do You Use Insect Repellent Routinely? No [email or web address] Information not available 02/06/2023 Do You Have A Medical Power Of Rebrander? No [email or web address] Information not available 02/06/2023 What Is Your Relationship Status? Single [id number] Information not available 04/27/2022 Do You Use Your Seat Belt Or Car Seat Routinely? Yes [email or web address] Information not available 02/06/2023 Do You Have Smoke And Carbon Monoxide Detectors In Your Home? Yes [email or web address] Information not available 02/06/2023 Do You Use Any Illicit Or Recreational Drugs? No [email or web address] Information not available 02/06/2023 Do You Use Sunscreen Routinely? Yes [email or web address] Information not available 02/06/2023 Have You Recently Traveled Abroad? No [email or web address] Information not available 02/06/2023 Do You Have Any Dietary Restrictions? No [email or web address] Information not available 02/06/2023 Do You Or Have You Ever Used Any Other Forms Of Tobacco Or Nicotine? No [email or web address] Information not available 02/06/2023 Sex: Unknown Functional Status Question Answer Note LastModified by Organizat ion Details LastModified Time What is your exercise level? Occasional [id number] Information not available 04/27/2022 Mental Status None recorded. Family History Relationship Description Onset Age of this Age Resolved Age Notes LastModified by Organization Details LastModified Time Father Diabetes mellitus [id number] Not available 04/27/2022 19:13:18 Father Hypertensive disorder [id number] Not available 04/27/2022 19:13:18 Mother Diabetes mellitus [id number] Not available 04/27/2022 19:13:18 Medical History Condition Response HEADACHES/MIGRAINES Y OBESITY Y BACK / NECK PROBLEMS Y DIZZINESS Y ASTHMA Y Gynecological HistoryNo gynecological history recorded. Obstetrics History GPAL:G 0 P 0 0 0 0 Immunizations Vaccine Type Date Status Note Provider Nam e and Address Organization Details Recorded Time Influenza, split virus, quadrivalent, preservative 2 completed Not Available [facility] 04/27/2022 19:15:28 influenza, unspecified formulation 9 completed Not Available [facility] 04/27/2022 19:15:28 influenza, unspecified formulation 6 completed Not Available [facility] 04/27/2022 19:15:28 SARS-COV-2 (COVID-19) vaccine, UNSPECIFIED 3 completed SUSIE Deleon, [place] [employer] 12/19/2022 09:48:49 Past Encounters Encounter ID Performer Location Encounter Start Date Encounter Closed Date Diagnosis/Indication Diagnosis SNOMED-CT Code Diagnosis ICD10 Code Diagnosis Note [id number] [facility] Internal Med Joselo Busch [address] [place] [address] 08/13/2021 00:00:00 08/20/2021 15:58:11 [id number] [facility] Internal Med [place] [address] [place] [address] 09/24/2021 00:00:00 09/24/2021 16:27:00 [id number] MALIHA Gerardo [facility] Internal Med [place] [address] [place] [address] 02/06/2023 15:16:11 02/06/2023 15:46:53 Adult health examination 718476473 Z00.01 annual well exam completed [facility] ed type 2 diabetes mellitus 181473562 E11.65 due for labs. refill farxiga 10mg daily Benign ess ential hypertension 0037325 I10 start losartan 50mg daily. Hyperlipidemia 22884520 E78.5 refill atorvastat in 10mg daily. due for fasting lipids Asthma 727335332 J45.90 9 inhalers have been refilled. Body mass index 40+ - severely obese 069396399 Z68.43 screening TFT panel. Long-term drug therapy 243590226 Z79.899 routine CBC and CMP Health Concerns Section Related Observation LastModified by Organization Detai ls LastModified Time None Recorded Concern Status LastModified by Organization Details LastModified Time None Recorded Advance Directives Directive N: Payers Encounter Date Sequence Insurance Name Policy Number Policy Alegria Covered Member ID Alegria Member ID Guarantor Name 02/06/2023 1 [facility] [id number] Regine Galaviz [id number] Regine Galaviz Notes Date Note Type Note Provider Name and Address Organization Details Recorded Time 022 text/ht ml Asthma F/UReported bypatient.Quality:well-controlled with antiasthmatics (Qvar since 2016 when she has insurance) Severity:able to sleep during episode; does not interfere with daily activities Onset/Timing:chronic Status:same Modifying Factors:avoidance of triggers; compliance with asthma regimen; short-acting beta agonist Associated Symptoms:no fever; no fatigue; no irritability; no cough; normal appetite; no changes in productivity; no shortness of breath Antiasthmatics:inhaled corticosteroids:; compliant with maintenance asthma medication; no prior adverse reaction(s)DiabetesReported bypatient.Duration:chronic Control:usually well controlled; treated with (has been off of meds for 2 years) Compliance:compliant with medications; compliant with diet;noncompliant with followup-visits;noncompliant with home glucose monitoring Self Care:not monitoring home glucose Context:checking feet regularly;not seeing eye doctor yearly;not taking aspirin daily Associated Symptoms:no weight gain; no weight loss; no dizziness; no sweats; no headaches; no confusion; no increased thirst; no increased appetite; no increased urination; no blurred vision; no numbness of feet; no calluses on feet; no fatigue; no blurred vision; no paresthesias Chronic Complications:hyperlipidemia: YesHyperlipidemiaReported bypatient.Duration:chronic Control:usually well controlled Current Therapy:currently taking: (has been off her meds 2 years) Compliance:compliant with diet; exercises (sometimes goes to [facility]);noncompliant Complications:no coronary artery disease; no peripheral artery disease; no cardiovascular disease Risk Factors:diabetes;obesity Not Available [facility] [employer] 08/20/2021 15:58:11 022 text/ht ml Asthma F/UReported bypatient.Quality:well-controlled with antiasthmatics (Qvar since 2016 when she has insurance) Severity:able to sleep during episode; does not interfere with daily activities Onset/Timing:chronic Status:same Modifying Factors:avoidance of triggers; compliance with asthma regimen; short-acting beta agonist Associated Symptoms:no fever; no fatigue; no irritability; no cough; normal appetite; no changes in productivity; no shortness of breath Antiasthmatics:inhaled corticosteroids:; compliant with maintenance asthma medication; no prior adverse reaction(s)DiabetesReported bypatient.Duration:chronic Control:usually well controlled; treated with (has been off of meds for 2 years) Compliance:compliant with medications; compliant with diet;noncompliant with followup-visits;noncompliant with home glucose monitoring Self Care:not monitoring home glucose Context:checking feet regularly;not seeing eye doctor yearly;not taking aspirin daily Associated Symptoms:no weight gain; no weight loss; no dizziness; no sweats; no headaches; no confusion; no increased thirst; no increased appetite; no increased urination; no blurred vision; no numbness of feet; no calluses on feet; no fatigue; no blurred vision; no paresthesias Chronic Complications:hyperlipidemia: YesHyperlipidemiaReported bypatient.Duration:chronic Control:usually well controlled Current Therapy:currently taking: (has been off her meds 2 years) Compliance:compliant with diet; exercises (sometimes goes to [facility]);noncompliant Complications:no coronary artery disease; no peripheral artery disease; no cardiovascular disease Risk Factors:diabetes;obesityHypertensi onReported bypatient.Duration:has noted for months Onset/Timing:better Alleviating Factors:medication Self Care:under emotional stress Associated Symptoms:no shortness of breath; no fatigue; no palpitations; no decline in exercise capacity; no snoringNotes:Pt is here to f/u after starting losartan 25mg. Not Available [employer] [facility] [employer] 09/24/2021 16:27:00 023 text/ht ml DiabetesReported bypatient.Duration:chronic Control:usually well controlled Compliance:compliant with medications; compliant with follow-up visits; compliant with diet; compliant with home glucose monitoring; had eye doctor visit in last year;noncompliant with diet;noncompliant with home glucose monitoring;has not had dietitian visit in last year;does not wear a medic alert bracelet or necklace;does not keep rapid-acting carbohydrate in car Self Care:not monitoring home glucose Context:seeing eye doctor regularly; checking feet regularly;not taking aspirin daily Associated Symptoms:no weight gain; no weight loss; no dizziness; no sweats; no headaches; no confusion; no increased thirst; no increased appetite; no increased urination; no blurred vision; no numbness of feet; no calluses on feet; no coronary artery disease; no kidney disease; no peripheral vascular disease; no diabetic retinopathy; no diabetic neuropathy;headaches;increased urinationHyperlipidemiaReported bypatient.Duration:chronic Control:usually well controlled Compliance:compliant;noncompliant with diet;does not exercise Complications:no coronary artery disease; no peripheral artery disease; no cardiovascular disease Risk Factors:diabetes;hypertensionHyper tensionReported bypatient.Duration:has noted for years Onset/Timing:better Alleviating Factors:medication Associated Symptoms:no shortness of breath; no fatigue; no palpitations; no decline in exercise capacity; no snoring Wellness MALIHA Gerardo [address], [facility] [address], [place], [address], [employer] [facility] 02/23/2023 11:47:16 OBGyn Episode No OBEpisode recorded.
[2024-05-04 08:27] LABS: Basophils Percent Auto 0.3 % (0.2-1.2); Eosinophils Absolute Auto 0.2 K/mm3 (0-0.3); Eosinophils Percent Auto 1.9 % (0-4.4); Hematocrit 46.2 % (37.0-47.0); Hemoglobin 14.8 g/dL (12.0-15.0); Immature Granulocyte Absolute 0.05 K/mm3 (0.00-0.031); Immature Granulocyte Percent A 0.4 % (0-0.5); Lymphocytes Absolute Auto 3.27 K/mm3 (0.9-3.2); Mean Corpuscular Hemoglobin 26.2 pg (26-34); Mean Corpuscular Volume 81.8 fl (80-100); Mean Platelet Volume 9.6 fl (7.4-10.4); Monocytes Absolute Auto 0.9 K/mm3 (0.1-0.6); Monocytes Percent Auto 7.9 % (2.6-8.5); Neutrophils Absolute Auto 6.8 K/mm3 (1.3-6.7); Neutrophils Percent Auto 60.5 % (45.5-73.1); Platelet Count Result 331 k/mm3 (150-375); Red Blood Count 5.65 M/mm3 (4.2-5.4); Red Cell Distribution Width 16.7 % (11.5-14.5); White Blood Count 11.3 K/mm3 (4.5-10.0)
[2024-05-04 08:40] LABS: Alanine Aminotransferase 81 U/L (6-35); Albumin Level 4.2 g/dL (3.5-5.1); Alkaline Phosphatase 67 U/L (38-126); Anion Gap 12 mmol/L (4-12); Aspartate Amino Transferase 55 U/L (14-36); Bilirubin,Total 0.4 mg/dL (0.2-1.3); Blood Urea Nitrogen 13 mg/dL (7-17); Calcium 9.3 mg/dL (8.4-10.2); Carbon Dioxide 22 mmol/L (22-30); Chloride 104 mmol/L (98-107); Cholesterol 166 mg/dL (0-200); Estimated Glomerular Filt Rate > 60; Glucose 125 mg/dL (65-110); HDL Direct 59 mg/dL; Potassium 3.4 mmol/L (3.4-5.0); Sodium 138 mmol/L (137-145); Triglycerides 133 mg/dL (<150)
[2024-05-04 08:51] LABS: LDL Cholesterol Direct 85 mg/dL
[2024-05-04 09:08] LABS: Free T4 Free Thyroxine 1.02 ng/dL (0.78-2.19)
[2024-05-04 13:00] LABS: Hemoglobin A1C 6.6 % (<5.7)
[2024-05-05 06:58] LABS: Prolactin 22.3 ng/mL
== END 2024-05-04 07:29 | disposition home or self-care (01) ==
LOC: ANHLAB 07:29
PROVIDERS: PCP Physician Assistant; Visit Provider Physician Assistant
DX: E11.65 Type 2 diabetes mellitus with hyperglycemia (principal); E78.5 Hyperlipidemia, unspecified; G44.52 New daily persistent headache (NDPH); Z79.899 Other long term (current) drug therapy
CPT/HCPCS: 36415; 80053; 80061; 83036; 84146; 84439; 84443; 85025

== ENCOUNTER 2024-08-17 07:42 | Outpatient (CLI) | payer OTHER, SELFPAY ==
[2024-08-17 08:44] LABS: Basophils Absolute Auto 0.1 K/mm3 (0.0-0.1); Basophils Percent Auto 0.4 % (0.2-1.2); Eosinophils Absolute Auto 0.2 K/mm3 (0-0.3); Eosinophils Percent Auto 1.6 % (0-4.4); Hematocrit 44.8 % (37.0-47.0); Hemoglobin 14.5 g/dL (12.0-15.0); Immature Granulocyte Absolute 0.06 K/mm3 (0.00-0.031); Immature Granulocyte Percent A 0.4 % (0-0.5); Lymphocytes Percent Auto 28.4 % (18.3-44.2); Mean Corpuscular HGB Conc 32.4 g/dl (32-36); Mean Corpuscular Hemoglobin 26.5 pg (26-34); Mean Corpuscular Volume 81.8 fl (80-100); Mean Platelet Volume 9.6 fl (7.4-10.4); Monocytes Absolute Auto 1.1 K/mm3 (0.1-0.6); Neutrophils Absolute Auto 8.2 K/mm3 (1.3-6.7); Neutrophils Percent Auto 61.2 % (45.5-73.1); Platelet Count Result 335 k/mm3 (150-375); Red Blood Count 5.48 M/mm3 (4.2-5.4); White Blood Count 13.4 K/mm3 (4.5-10.0)
[2024-08-17 08:56] LABS: Alanine Aminotransferase 63 U/L (6-35); Albumin Level 3.9 g/dL (3.5-5.1); Alkaline Phosphatase 67 U/L (38-126); Anion Gap 14 mmol/L (4-12); Aspartate Amino Transferase 44 U/L (14-36); Bilirubin,Total 0.4 mg/dL (0.2-1.3); Blood Urea Nitrogen 14 mg/dL (7-17); Carbon Dioxide 18 mmol/L (22-30); Chloride 105 mmol/L (98-107); Cholesterol 153 mg/dL (0-200); Estimated Glomerular Filt Rate > 60; Glucose 117 mg/dL (65-110); HDL Direct 57 mg/dL; Sodium 137 mmol/L (137-145); Total Protein 7.4 g/dL (6.3-8.2); Triglycerides 171 mg/dL (<150)
[2024-08-17 09:07] LABS: LDL Cholesterol Direct 70 mg/dL
[2024-08-17 09:58] LABS: Hemoglobin A1C 6.6 % (<5.7)
== END 2024-08-17 07:43 | disposition home or self-care (01) ==
PROVIDERS: PCP Physician Assistant; Visit Provider Physician Assistant
DX: E11.65 Type 2 diabetes mellitus with hyperglycemia (principal); E78.5 Hyperlipidemia, unspecified; Z79.899 Other long term (current) drug therapy
CPT/HCPCS: 36415; 80053; 80061; 83036; 85025

== ENCOUNTER 2024-09-03 11:11 | Outpatient (CLI) | payer OTHER, SELFPAY ==
--- OUTSIDE RECORDS SUMMARY | 2024-09-03 11:16 | XMS_ITS | Clinical Summary ---
Author Organization [facility] Address [address] [place] [address] Phone Care Team Providers Care Principal Software Architect Name Role Phone Kavya Perez Primary Care Provider [phone] Medications traMADol (ULTRAM) 50 MG TabletIndicatio ns:Chest [...] 5:01 PM CDT Height 157.5 cm (5' 2) 08/19/2022 5:01 PM CDT Body Mass Index 57.54 08/19/2022 5:01 PM CDT Plan of Treatment Health Maintenance Due Date Last Done Comments Hepatitis C Virus (HCV) Screening 1990 TdaP Immunization 1990 Human Papillomavirus (HPV) Immunization (1 - 3-dose series) 2005 Hepatitis B Immunization (1 of 3 - 19+ 3-dose series) 2009 Pap Smear 11/08/2011 Cervical Cancer Screening (CCS) 2020 HPV/Cotest 2020 SARS-COV-2 Immunization ( season) 2023 12/26/2021, 04/09/2021, 03/06/2020, Additional history exists Influenza Immunization (#1) 10/28/202410/29, 11/11/2020, 11/13/2019 Respiratory Syncytial Virus (RSV) Immunization (Adult) (1 - 1-dose 75+ series) 2065 Meningococcal Immunization (ACWY) Aged Out No longer eligible based on patient's age to complete this topic Pneumococcal Immunization Combined Aged Out No longer eligible based on patient's age to complete this topic Rotavirus Immunization Aged Out No lo nger eligible based on patient's age to complete this topic Insurance [facility] Care Teams Principal Software Architect Relationship Specialty Start Date End Date Kavya Perez PA PCP - General Family Medicine 08/19/22
--- OUTSIDE RECORDS SUMMARY | 2024-09-03 11:16 | XMS_ITS | Patient Health Record ---
Author Organization [facility] Address [address] [place] [address] Care Team Providers Care Customer Supply Coordinator Name Role Phone Kai Wiggins Primary Care Provider Reason For Referral No Information Immunizations Vaccine Route Administration Date Status Comme nts COVID-19 Vaccine Pfizer 2ND IM Intramuscular 02/15/2020 Administered EUA dated: 01/2020. 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 Patient tolerated well. COVID-19 Vaccine Pfizer 2ND IM Intramuscular 03/06/2020 Administered Information Technology Assistant: [employer]. EUA given. Patient tolerated well. Plan Of Treatment No Information
--- OUTSIDE RECORDS SUMMARY | 2024-09-03 11:16 | XMS_ITS | Data Portability ---
Author Organization [facility], Main Office Address [address] [place] [address] Assessment No assessment recorded. Plan of Treatment Reminders Order Date Submit Date Provider Last Modified By Organization Details Last Modified Time Details Appointments None recorded. Lab TSH + free T4, serum 2022 023 [email or web address] [facility], [address], [place], [address], 4 08:53:34 microalbumi n, urine 2022 023 [email or web address] [facility], [address], [place], [address], 4 08:53:34 HbA1c (hemoglobin A1c), blood 2022 023 [email or web address] [facility], [address]ka[address], [place], [address], 4 08:53:35 CBC w/ auto diff 2022 023 [email or web address] [facility], [address], [place], [address], 4 08:53:34 CMP, serum or plasma 2022 023 [email or web address] [facility], [address], [place], [address], 4 08:53:34 lipid panel, serum 2022 023 [email or web address] [facility], [address], [place], [address], 4 08:53:34 Referral None recorded. Procedures None recorded. Surgeries None recorded. Imaging None recorded. Medication Orders Farxiga 10 mg tablet 2022 023 [facility] [address] [place], [address], 3 15:47:07 losartan 50 mg tablet 2022 023 [facility] [address] [place], [address], 3 15:47:05 atorvastati n 10 mg tablet 2022 023 [facility] [address] [place], [address], 3 15:47:04 Patient TargetsNo targets recorded. Patient InstructionsNo instructions recorded. Reason for Referral None Reported. Results Created Date Observation Date Name Description Value Unit Range Abnormal Flag Note LastModifiedBy Organization Detail LastModifiedTime Result Notes None recorded. Problems Name Problem SNOMED Code Status Onset Date Resolution Date Notes Provider Name and Address Organization Details Recorded Time Benign essential hypertension 7951717 Active 2021 Not Available [facility] 3 19:14:24 Asthma 662342655 Active 2017 Not Available [facility] 3 19:14:24 Type 2 diabetes mellitus 42411526 Active 2017 Not Available [facility] 3 19:14:24 Uncontrolled type 2 diabetes mellitus 967479371 Active 2021 Not Available [facility] 3 19:14:24 Hyperlipidemi a 32674084 Active 2019 Not Available [facility] 3 19:14:24 Notes:COVID-19 pos 03/08/21 Problem Notes [...] INHALE 2 PUFFS BY MOUTH TWICE DAILY 01/26 /2024 completed Not Available Not Available Not Available [...] Respiratory rate Body temperature Body weight Systolic And Diastolic Provider Name and Address Organization Details Last Updated DateTime 2 57.8 kg/m2 157.48 cm 96 % 96 % 91 /min 16 /min 97.9 [degF] 306065. 91 g 140/80 mm[Hg] Not Available [facility] 3 19:14:00 Date Recorded Body mass index (BMI) Body height Oxygen saturation Oxygen saturation in Arterial blood by Pulse oximetry Heart rate Respiratory rate Body temperature Body weight Systolic And Diastolic Provider Name and Address Organization Details Last Updated DateTime 2 58.3 kg/m2 157.48 cm 98 % 98 % 108 /min 16 /min 98.2 [degF] 165053. 25 g 138/88 mm[Hg] Not Available [facility] 3 19:14:00 Date Recorded Body height Body temperature Body mass index (BMI) Body weight Respiratory rate Oxygen saturation Oxygen saturation in Arterial blood by Pulse oximetry Heart rate Systolic And Diastolic Provider Name and Address Organization Details Last Updated DateTime 3 157.48 cm 97.2 [degF] 54.9 kg/m2 502070. 71 g 16 /min 98 % 98 % 97 /min 128/72 mm[Hg] SUSIE Deleon [place] [employer] [facility] 3 15:22:48 Social History Question Answer Notes LastModified by Organizat ion Details LastModified Time Tobacco Smoking Status Never Smoker Crystal Fitzgerald, RMByron null, [place] [facility] 02/06/2023 15:17:23 Do You Have An Advance Directive? No [id number] Information not available 04/27/2022 What Is Your Level Of Caffeine Consumption? Heavy [id number] Information not available 04/27/2022 In The 14 Days Before Symptom Onset, Have You Had Close Contact With A Laboratory-confirm ed COVID-19 While That Case Was Ill? No [email or web address] Information n ot available 02/06/2023 In The 14 Days Before Symptom Onset, Have You Had Close Contact With A Person Who Is Under Investigation For COVID-19 While That Person Was Ill? No [email or web address] Information not available 02/06/2023 What Type Of Diet Are You Following? REGULAR [id number] Information not available 04/27/2022 Have There Been Any Changes To Your Family Or Social Situation? No Information no t available 02/06/2023 Are There Any Guns Present In Your Home? No [email or web address] Information not available 02/06/2023 Do You Use Insect Repellent Routinely? No [email or web address] Information not available 02/06/2023 Do You Have A Medical Power Of Hands Hanger? No [email or web address] Information not available 02/06/2023 What Is Your Relationship Status? Single [id number] Information not available 04/27/2022 Do You Use Your Seat Belt Or Car Seat Routinely? Yes [email or web address] Information not available 02/06/2023 Do You Have Smoke And Carbon Monoxide Detectors In Your Home? Yes [email or web address] Information not available 02/06/2023 Do You Use Sunscreen Routinely? Yes [email or web address] Information not available 02/06/2023 Have You Recently Traveled Abroad? No [email or web address] Information not available 02/06/2023 Do You Have Any Dietary Restrictions? No [email or web address] Information not available 02/06/2023 Sex: Unknown Functional Status Question Answer Note LastModified by Organizat ion Details LastModified Time Do you use any illicit or recreational drugs? No [email or web address] Information not available 02/06/2023 Do you or have you ever used any other forms of tobacco or nicotine? No Information not available 02/06/2023 What is your level of alcohol consumption? Occasional [id number] Information not available 04/27/2022 Are you currently employed? 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 Occasional [id number] Information not available 04/27/2022 Mental Status None recorded. Family History Relationship Description Onset Age of this Age Resolved Age Notes LastModified by Organization Details LastModified Time Father Diabetes mellitus [id number] Not available 04/27/2022 19:13:18 Father Hypertensive disorder [id number] Not available 04/27/2022 19:13:18 Mother Diabetes mellitus [id number] Not available 04/27/2022 19:13:18 Medical History Condition Response HEADACHES/MIGRAINES Y OBESITY Y BACK / NECK PROBLEMS Y DIZZINESS Y ASTHMA Y Gynecological HistoryNo gynecological history recorded. Obstetrics History GPAL:G 0 P 0 0 0 0 Immunizations Vaccine Type Date Status Note Provider Nam e and Address Organization Details Recorded Time Influenza, split virus, quadrivalent, preservative 2 completed Not Available [facility] 04/27/2022 19:15:28 influenza, unspecified formulation 9 completed Not Available [facility] 04/27/2022 19:15:28 influenza, unspecified formulation 6 completed Not Available [facility] 04/27/2022 19:15:28 SARS-COV-2 (COVID-19) vaccine, UNSPECIFIED 3 completed SUSIE Deleon[place] [employer] [facility] 12/19/2022 09:48:49 Past Encounters Encounter ID Performer Location Encounter Start Date Encounter Closed Date Diagnosis/Indication Diagnosis SNOMED-CT Code Diagnosis ICD10 Code Diagnosis Note [id number] Gregory Myrick MD [facility] [place] [address] [place] [address] 08/13/2021 00:00:00 08/20/2021 15:58:11 [id number] Gregory Myrick MD [facility] [place] [facility] [place] [address] [place] [address] 09/24/2021 00:00:00 09/24/2021 16:27:00 [id number] MALIHA Gerardo [facility] [place] [facility] [place] [address] [place] [address] 02/06/2023 15:16:11 02/06/2023 15:46:53 Adult health examination 435687891 Z00.01 annual well exam completed [facility] ed type 2 diabetes mellitus 097145211 E11.65 due for labs. refill farxiga 10mg daily Benign ess ential hypertension 1377098 I10 start losartan 50mg daily. Hyperlipidemia 00505859 E78.5 refill atorvastat in 10mg daily. due for fasting lipids Asthma 814770152 J45.90 9 inhalers have been refilled. Body mass index 40+ - severely obese 422409299 Z68.43 screening TFT panel. Long-term drug therapy 779510184 Z79.899 routine CBC and CMP Health Concerns Section Related Observation LastModified by Organization Detai ls LastModified Time None Recorded Concern Status LastModified by Organization Details LastModified Time None Recorded Advance Directives Directive N: Payers Insurance Date Sequence Insurance Name Policy Number Policy Alegria Covered Member ID Alegria Member ID Guarantor Name 03/03/2023 1 [facility] [id number] Regine Galaviz [id number] Regine Galaviz Notes Date Note Type Note [...] no cardiovascular disease Risk Factors:diabetes;obesity Not Available [facility] 08/20/2021 15:58:11 022 text/ht ml Asthma F/UReported [...] f/u after starting losartan 25mg. Not Available Kynded 09/24/2021 16:27:00 023 text/ht ml DiabetesReported bypatient.Duration:chronic [...] capacity; no snoring Wellness MALIHA Gerardo [address] [facility], [facility] [address], [place], [address], Kynded 02/23/2023 11:47:16 OBGyn Episode No OBEpisode recorded.
--- OUTSIDE RECORDS SUMMARY | 2024-09-03 11:16 | XMS_ITS | Data Portability ---
Author Organization [facility] [place] BERGER Juliana Address [address] [facility] [place] [address] Care Team Providers Care Ball Point Splitter Name Role Phone KAVYA SR Primary Care Provider Unavailab le Assessment Encounter Date Assessment Date Assessment LastModified by Organization Details LastModified Time 05/24/2024 05/24/2024 hemoglobin A1c has dropped to a controlled range of 6.6%. I am Very happy about this. Kidney function is stable, but her liver enzymes are slightly elevated at 55 and 81. This could be from some fatty liver. I would like her to have a liver ultrasound because I do not think she has had to have that in the past. I will place that order. Her cholesterol level is in controlled stable range and her thyroid levels are normal. Her prolactin level which I ordered because of her history of headaches is actually still in a normal range. CBC counts are stable. Not available 06/03/2024 09:43:40 Plan of Treatment Reminders Order Date Submit Date Provider Last Modified By Organization Details Last Modified Time Details Appointments ANY 15 2024 03:15P MALIHA Gamboa Not available Not available Not available Lab HbA1c (hemogl obin A1c), blood 2024 025 [facility] (Lab), [facility] [address], [place], [address], 08/19/2024 14:58:05 CBC w/ auto diff 2024 025 [facility] (Lab), [address], [place], [address], 08/19/2024 15:01:39 CMP, serum or plasma 2024 025 [facility] (Lab), [facility] [address], [place], [address], 08/19/2024 15:01:25 lipid panel, serum 2024 025 [facility] (Lab), [address] [place] [address] [address], [place], [address], 08/19/2024 15:01:49 CBC w/ auto diff [address] [place] [address] (Lab), [address] [place] [address] [address], [place], [address], 05/24/2024 15:43:15 CMP, serum or plasma [address] [place] [address] (Lab), [address] [place] [address] [address], [place], [address], 05/24/2024 15:43:21 lipid panel, serum [address] [place] [address] (Lab), [address] [place] [address] [address], [place], [address], 05/24/2024 15:42:57 TSH + free T4, serum [address] [place] [address] (Lab), [address] [place] [address] [address], [place], [address], 05/24/2024 15:42:19 HbA1c (hemogl obin A1c), blood [address] [place] [address] (Lab), [address] [place] [address] [address], [place], [address], 05/24/2024 15:41:51 prolact in, serum [address] [place] [address] (Lab), [address] [place] [address] [address], [place], [address], 05/24/2024 15:42:34 CBC w/ auto diff 11/01/ 2024 01/13/[address] (Lab), [address] [place] [address] [address], [place], [address], 04/01/2024 10:38:33 CMP, serum or plasma [address] (Lab), [address] [place] [address] [address], [place], [address], 04/01/2024 10:39:37 lipid panel, serum [address] (Lab), [address] [place] [address] [address], [place], [address], 04/01/2024 10:38:21 TSH + free T4, serum [address] (Lab), [address] [place] [address] [address], [place], [address], 04/01/2024 10:40:08 HbA1c (hemogl obin A1c), blood [address] (Lab), [address] [place] [address] [address], [place], [address], 04/01/2024 10:38:02 prolact in, serum [address] (Lab), [address] [place] [address] [address], [place], [address], 04/01/2024 10:39:51 HbA1c (hemogl obin A1c), blood 2023 024 In-Office Order, Internal Use Only DO Not Attach Compendium DO Not Attach Compendium, Do Not Delete/merge, [id number] 11/01/2023 09:24:34 TSH + free T4, serum 2023 024 [email or web address] [facility], [address] [facility], [address], [place], [address], 10/24/2023 12:35:48 CMP, serum or plasma 2023 024 [facility], [address] [place] [address], [address], [place], [address], 10/24/2023 12:35:48 CBC w/ auto diff 2023 024 [facility], [address] [place] [address], [address], [place], [address], 10/24/2023 12:35:48 lipid panel, serum 2023 024 [facility], [address] [place] [address], [address], [place], [address], 10/24/2023 12:35:48 HbA1c (hemogl obin A1c), blood 2023 024 In-Office Order, Internal Use Only DO Not Attach Compendium DO Not Attach Compendium, Do Not Delete/merge, [id number] 08/21/2023 17:26:[address] referra l 2023 024 [facility] - Otolaryngology (Ent), [address] [place] [address] , [address], [place], [address], 09/19/2023 16:47:40 Procedures home sleep testing (PROC) 2024 025 [email or web address] [facility], [address], [address], [place], [address], 08/14/2024 15:22:58 fine needle aspirat ion, ultraso und guided, thyroid (PROC) 2023 024 [facility] (Imaging), [address] [place] [address] [address], [place], [address], 10/13/2023 00:20:39 Surgeries None recorde d. Imaging None recorde d. Medication Orders hydroch lorothi azide 25 mg tablet 2024 025 [facility] [facility], [place], [address], 03/29/2024 16:56:32 atorvas tatin 10 mg tablet 2023 024 [facility] [address] [facility], [place], [address], 12/29/2023 17:15:33 Farxiga 10 mg tablet 2023 024 [facility] [address] [facility], [place], [address], 12/29/2023 17:15:34 Mounjar o 5 mg/0.5 mL subcuta neous pen injecto r [email or web address] [place] [address] [address] [facility], [place], [address], 05/12/2024 21:28:23 hydroch lorothi azide 25 mg tablet 2023 024 [facility] [address] [facility], [place], [address], 12/29/2023 17:25:22 Qvar RediHal er 80 mcg/act uation HFA breath activat ed aerosol 2023 025 [facility] [address] [facility], [place], [address], 03/29/2024 16:47:04 losarta n 100 mg tablet 2023 024 [facility] [address] [facility], [place], [address], 11/01/2023 09:24:58 amlodip ine 10 mg tablet [facility] [address] [facility], [place], [address], 12/29/2023 16:45:14 albuter ol sulfate HFA 90 mcg/act uation aerosol inhaler 2023 024 [facility] [address] [place], [address], 08/21/2023 17:25:08 glimepi ride 2 mg tablet 2023 024 [facility] [address] [place], [address], 08/21/2023 17:26:14 amlodip ine 5 mg tablet 2023 024 [facility] [address] [place], [address], 11/01/2023 09:30:14 Patient TargetsNo targets recorded. 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 Referral fo r Dominant nodule of thyroid Referring Physician: Kavya Sr, Internal Medicine, Encounter Date: 08/21/2023 Results Created Date Observation Date Name Description Value Unit Range Abnormal Flag Note LastModifiedBy Organization Detail LastModifiedTime 08/21/1908/21/2023 HbA1c (hemo globi n A1c), blood HbA1c 9.2 Not Available In-Office Order Internal Use Only DO Not Attach Compendium DO Not Attach Compendium, Do Not Delete/merge, [id number] 08/21/2023 17:24:54 11/01/1911/01/2023 HbA1c (hemo globi n A1c), blood HbA1c 7.7% Not Available In-Office Order Internal Use Only DO Not Attach Compendium DO Not Attach Compendium, Do Not Delete/merge, [id number] 11/01/2023 09:24:12 08/14/19 24 08/12/2023 US, thyro id No observ ation record ed. [facility] [address], [place], [address], 08/18/2023 15:40:10 10/09/19 24 10/09/2023 fine needl e aspir ation , ultra sound guide d, thyro id (PROC ) No observ ation record ed. [email or web address] [place] [address] (Imaging) [address], [place], [address], 11/01/2023 09:30:53 Result Notes None recorded. Problems Name Problem SNOMED Code Status Onset Date Resolution Date Notes Provider Name and Address Organization Details Recorded Time Obesity 234680144 Active 2023 MALIHA Gerardo Attn: Raisa fox,[address] [facility], [place], [address], [place] [facility] 4 17:16:27 Long-term drug therapy Active 2023 MALIHA Gerardo Attn: Raisa fox,[address] [facility], [place], [address], [place] [facility] 4 17:16:31 Asthma 617711465 Active 2023 MALIHA Gerardo Attn: Raisa fox,[address] [facility], [place], [address], [place] 4 17:16:33 Benign essential hypertensio n 6417767 Active 2023 MALIHA Gerardo Attn: Raisa g,[address] [facility], [place], [address], [place] [facility] 4 17:16:34 Dominant nodule of thyroid 366636408 Active 2023 MALIHA Gerardo Attn: Accountpatricia g,[address] [facility], [place], [address], [place] [facility] 4 17:16:35 Uncontrolle d type 2 diabetes mellitus 339360708 Active 2023 MALIHA Gerardo Attn: Accountpatricia g,[address] [facility], [place], [address], [place] [facility] 4 17:16:36 Positive screening for depression on PHQ-9 (Patient Health Questionnai re 9) 6462468023836 00 Active 2023 MALIHA Gerardo Attn: Accountin g,[address] [facility], [place], [address], [place] [facility] 4 17:23:31 Scoliosis deformity of spine 252832906 Active 2023 MALIHA Gerardo Attn: Accountin g,[address] [facility], [place], [address], [place] [facility] 4 09:17:49 Hyperlipide [place] 36716421 Active 2023 MALIHA Gerardo Attn: Accountpatricia fox,[address] [facility], [place], [address], [place] [facility] 4 09:35:02 New daily persistent headache 7707503280528 05 Active 2023 MALIHA Gerardo Attn: Accountpatricia g,[address] [facility], [place], [address], [place] [facility] 4 17:27:58 Morbid obesity 214753525 Active 2024 MALIHA Gerardo Attn: Accountin g,[address] [facility], [place], [address], [place] [facility] 5 16:45:42 Liver enzymes level above reference range 299435422 Active 2024 MALIHA Gerardo Attn: Accountin g,[address] [facility], [place], [address], [place] [facility] 5 15:07:20 Sleep apnea 73518891 Active 2024 MALIHA Gerardo Attn: Raisa [address] [place], [address], [facility] 5 09:42:57 Problem Notes None recorded. Procedures Surgical History Date Name Laterality Status Provider Name and Address Organization Details Recorded Time Diabetic Foot Exam completed Clarissa Contreras MA [facility] 11/01/2023 09:03:52 Imaging Results None recorded. Procedure Notes None recorded. Medical Equipment None Reported. Allergies Allergen ID Allergen Name Allergen Category Reaction Reaction Severity Criticality Documentation Date Start Date Code Code System Note Provider Name and Address Organization Details Recorded Time 17870831 metformin medicatio n other mild low 12/29/2023 6809 RxNorm unabl e to dustin dailey MALIHA Gerardo Attn: Raisa fox,[address] [facility], [place], [address], [facility] 4 17:13:15 Medications Name Sig Start Date Stop Date [...] t Available atorvasta tin 10 mg tablet TAKE 1 TABLET BY MOUTH ONCE DAILY active Not Available Not Available No t Available meloxicam 15 mg tablet TAKE 1 TABLET BY MOUTH ONCE DAILY 05/24 completed Not Available Not Available Not Available potassium chloride ER 10 mEq tablet,ex tended release Take 1 tablet every day by oral route, for [place]. 2024 active Not Available Not Available Not Avai lable amlodipin e 5 mg tablet TAKE 1 TABLET BY MOUTH ONCE DAILY 10/31 completed Not Available Not Available Not Available tramadol 50 mg tablet TAKE 1 TABLET BY MOUTH EVERY 8 HOURS NEEDED FOR MODERATE OR MORE SEVERE PAIN active Not Available Not Available No t Available glimepiri de 2 mg tablet TAKE 1 TABLET BY MOUTH TWICE DAILY WITH MEALS 2024 active Not Available Not Available Not Avai lable amlodipin e 10 mg tablet TAKE 1 TABLET BY [...] Not Available Not Available Not Avai lable methylpre dnisolone 4 mg tablets in a dose pack TAKE BY MOUTH DIRECTED ON INSIDE OF PACKAGE 08/17 completed Not Available Not Available Not Available albuterol sulfate HFA 90 mcg/actua tion aerosol [...] completed Not Available Not Available Not Available L norgest/E E 0.15-0.02 mg/0.15-0 .025mg/0. 15-0.03mg /EE 0.01 mg tabs,3mo TAKE 1 TABLET BY MOUTH ONCE DAILY active Not Available Not Available No t Available Farxiga 10 mg tablet TAKE 1 TABLET BY MOUTH ONCE DAILY active Not Available Not Available No t Available Qvar RediHaler 80 mcg/actua tion HFA breath [...] 7.5 mg/0.5 mL subcutane ous pen injector INJECT 7.5MG SUBCUTAN EOUSLY ONCE WEEKLY 08/05 completed Not Available Not Available Not Available Mounjaro 5 mg/0.5 mL subcutane ous pen injector INJECT 1 SYRINGE SUBCUTAN EOUSLY ONCE A WEEK 05/12 completed Not Available Not Available Not Available Mounjaro 10 mg/0.5 mL subcutane ous pen injector INJECT 10MG SUBCUTAN EOUSLY ONCE WEEKLY 2024 active Not Available Not Available Not Avai lable Dexcom G7 Sensor device USE DIRECTED active Not Available Not Available No t Available Breyna 160 mcg-4.5 mcg/actua tion HFA aerosol inhaler INHALE 2 PUFFS BY MOUTH TWICE DAILY active Not Available Not Available No t Available Vitals Date Recorded Body height Body mass index (BMI) Body weight Heart rate Oxygen saturation Oxygen saturation in Arterial blood by Pulse oximetry Systolic And Diastolic Provider Name and Address Organization Details Last Updated DateTime 157.48 cm 55.3 kg/m2 105046. 33 g 105 /min 98 % 98 % 162/90 mm[Hg] Kiersten Moreno MA [facility] 16:26:10 Date Recorded Systolic And Diastolic Provider Name and Address Organization Details Last Updated DateTime 05/24/2024 128/86 mm[Hg] MALIHA Gerardo Attn: [place], [address], [place] - [place] 05/24/2024 15:13:47 Date Recorded Body height Body mass index (BMI) Body weight Oxygen saturation Oxygen saturation in Arterial blood by Pulse oximetry Heart rate Respiratory rate Systolic And Diastolic Provider Name and Address Organization Details Last Updated DateTime 157.48 cm 52.7 kg/m2 347329. 6 g 98 % 98 % 108 /min 20 /min 138/82 mm[Hg] Clarissa Contreras MA [facility] 14:47:17 Date Recorded Systolic And Diastolic Provider Name and Address Organization Details Last Updated DateTime 08/21/2023 148/108 mm[Hg] MALIHA Gerardo Attn: Accounting,[address] [place], [address], [facility] 08/21/2023 17:14:27 Date Recorded Body weight Body mass index (BMI) Body height Heart rate Oxygen saturation Oxygen saturation in Arterial blood by Pulse oximetry Systolic And Diastolic Provider Name and Address Organization Details Last Updated DateTime 633828. 2 g 51.7 kg/m2 157.48 cm 105 /min 98 % 98 % 164/110 mm[Hg] Kiersten Moreno MA [facility] 16:51:31 Date Recorded Systolic And Diastolic Systolic And Diastolic Provider Name and Address Organization Details Last Updated DateTime 11/01/2023 160/100 mm[Hg] 160/100 mm[Hg] MALIHA Gerardo Attn: Accounting, [place], [address], [facility] 11/01/2023 09:31:29 Date Recorded Body height Body mass index (BMI) Body weight Respiratory rate Oxygen saturation Oxygen saturation in Arterial blood by Pulse oximetry Heart rate Systolic And Diastolic Provider Name and Address Organization Details Last Updated DateTime 157.48 cm 54.4 kg/m2 594915. 51 g 20 /min 100 % 100 % 93 /min 136/88 mm[Hg] Clarissa Contreras MA [facility] 09:02:40 Date Recorded Respiratory rate Systolic And Diastolic Systolic And Diastolic Provider Name and Address Organization Details Last Updated DateTime 12/29/2023 18 /min 160/90 mm[Hg] 160/90 mm[Hg] MALIHA Gerardo Attn: Accounting, [address] [place], [address], [facility] 12/29/2023 17:30:13 Date Recorded Body height Body mass index (BMI) Body weight Oxygen saturation Oxygen saturation in Arterial blood by Pulse oximetry Heart rate Systolic And Diastolic Provider Name and Address Organization Details Last Updated DateTime 157.48 cm 55.4 kg/m2 368933. 49 g 98 % 98 % 102 /min 140/88 mm[Hg] Clarissa Contreras [place] [facility] 16:50:34 Social History Question Answer Notes LastModified by Organizat ion Details LastModified Time Tobacco Smoking Status Never Smoker Kiersten EILEEN Moreno null, [place] - [facility] 08/21/2023 16:43:59 How Many Years Have You Consumed Alcohol? 10 Information not available 08/21/2023 Are You Blind Or Do You Have Difficulty Seeing? No Information n ot available 08/21/2023 What Is Your Level Of Caffeine Consumption? Heavy Information not available 08/21/2023 In The 14 Days Before Symptom Onset, Have You Had Close Contact With A Laboratory-confirm ed COVID-19 While That Case Was Ill? No Information n ot available 08/21/2023 In The 14 Days Before Symptom Onset, Have You Had Close Contact With A Person Who Is Under Investigation For COVID-19 While That Person Was Ill? No Information not available 08/21/2023 Have You Been To An Area Known To Be High Risk For COVID-19? No Information not available 08/21/2023 Are You Deaf Or Do You Have Serious Difficulty Hearing? No Information not available 08/21/2023 What Type Of Diet Are You Following? REGULAR Information n ot available 08/21/2023 Are There Any Guns Present In Your Home? No Information not available 08/21/2023 What Was The Date Of Your Most Recent Tobacco Screening? 05/24/2024 [email or web address] Information not available 05/24/2024 What Is Your Relationship Status? Single Information not available 08/21/2023 Do You Use Your Seat Belt Or Car Seat Routinely? Yes Information not available 08/21/2023 Do You Have Smoke And Carbon Monoxide Detectors In Your Home? Yes Information not available 08/21/2023 Do You Use Sunscreen Routinely? Yes Information not available 08/21/2023 Has Tobacco Cessation Counseling Been Provided? No Information not available 08/21/2023 Sex: Female Functional Status Question Answer Note LastModified by Organizat ion Details LastModified Time Do you use any illicit or recreational drugs? No Information not available 08/21/2023 Do you or have you ever used any other forms of tobacco or nicotine? No Information not available 08/21/2023 What is your level of alcohol consumption? Occasional Information not available 08/21/2023 Are you currently employed? Yes Information not available 08/21/2023 Are you able to care for yourself? 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 None Information not available 08/21/2023 Mental Status Question Answer Note LastModified by Organization D etails LastModified Time Do you feel stressed (tense, restless, nervous, or anxious, or unable to sleep at night)? [id number] Information not available 08/21/2023 Family History Relationship Description Onset Age of [...] History Condition Response High Blood Pressure Y Asthma Y High Cholesterol Y Gynecological History Statement/Question Response Menses Monthly [...] mcg/0.3 mL dose 0 completed Clarissa Contreras E[place] null, [place] [facility] 12/18/2023 10:47:10 COVID-19, [...] [place], [place] [facility] 12/18/2023 10:47:10 Influenza, split virus, quadrivalent, PF 1 completed Clarissa Contreras [place] [facility] 12/18/2023 10:47:10 Influenza, split virus, quadrivalent, PF 2 completed Clarissa Contreras [place] [facility] 12/18/2023 10:47:10 influenza, unspecified formulation 4 completed Clarissa Contreras [place] [facility] 12/18/2023 10:49:25 COVID-19, mRNA, LNP-S, PF, tricia-sucrose, 30 mcg/0.3 mL 4 completed Clarissa Contreras [place], [place] [facility] 01/22/2024 09:56:07 Past Encounters Encounter ID Performer Location Encounter Start Date Encounter Closed Date Diagnosis/Indication Diagnosis SNOMED-CT Code Diagnosis ICD10 Code Diagnosis Note [id number] Gregory Myrick MD [facility] e - [place] [address] [place] [address] 08/21/2023 16:22:50 08/21/2023 17:37:56 Dominant nodule of thyroid 451258744 E04.1 Referral for fine-needl e aspiration of the left-sided thyroid nodule and follow-up referral to Ear Nose and Throat placed today. Uncontroll ed type 2 diabetes mellitus 261491366 E11.65 Fingerstic k A1c in the office is 9.2% today. Continue Farxiga 10 mg daily and add glimepirid e 2 mg twice daily with meal. Patient would also like to have a [employer] G7 testing device. Benign ess ential hypertension 2629968 I10 Continue losartan 100 mg daily and add amlodipine 5 mg daily for persistent blood pressure elevation today in the 140/108 range. Asthma 825775849 J45.90 9 Refill given on albuterol HFA inhaler to use as needed Cholesterol screening 27 6457611 Z13.220 Fasting lipid panel is due Long-term drug therapy 229225855 Z79.899 Routine CMP and CBC labs are due Thyroid di sorder screening 044430095 Z13.29 Routine thyroid function testing is ordered Body mass index 40+ - severely obese 967168488 Z68.43 Obesity 409797494 E66.8 discussed healthy diet, exercise, controllin g carbohydra yovany and added sugars in the diet Positive s creening for depression on PHQ-9 (Patient Health Questionnaire 9) 9673803698 33781 Z13.31 Patient scored 7 on screening today. She feels stable with her mental health. [id number] Gregory Myrick MD [facility] e - [place] [address] [place] [address] 11/01/2023 08:47:30 11/01/2023 10:09:14 Benign essential hypertension 6800727 I10 Continue losartan 100 mg daily and increase to amlodipine 10mg daily for persistent blood pressure elevation today Uncontroll ed type 2 diabetes mellitus 180341091 E11.65 Fingerstic k A1c 7.7% in the office is today. Continue Farxiga 10 mg daily and add glimepirid e 2 mg twice daily with meal.Novem angi eye appt with [facility] in [place]. Dominant n odule of thyroid 053241525 E04.1 all benign on FNA. Asthma 683541235 J45.90 9 Refill given on albuterol HFA inhaler to use as needed Long-term drug therapy 785596341 Z79.899 order labs at next appt Dec 28 appt. Body mass index 40+ - severely obese 972267993 Z68.43 bmi 54.4 Obesity 339065024 E66.8 discussed healthy diet, exercise, controllin g carbohydra yovany and added sugars in the diet Adult heal th examination 073900957 Z00.01 annual wellness exam completed. Scoliosis deformity of spine 586114632 M41.9 History reviewed of scoliosis Hyperlipidemia 62542423 E78.5 lipids are well controlled on atorvastat in 10mg daily. [id number] Gregory Myrick MD [facility] - [place] [address] [place] [address] 12/29/2023 16:24:03 01/17/2024 14:57:55 Uncontrolled type 2 diabetes mellitus 711065313 E11.65 Continue Farxiga 10 mg daily and add glimepirid e 2 mg twice daily with meal. Trial of Mounjaro 2.5 mg once weekly sample for a free month given. She would then increase to Mounjaro 5 mg weekly thereafter .feb 08 eye appt with [facility] in [place]. Benign ess ential hypertension 9636109 I10 Continue losartan 100 mg daily and amlodipine 10mg daily and add hydrochlor othiazide 25 mg daily for persistent blood pressure elevation. Hopefully this will also help her headaches that are related to the elevated pressure. Hyperlipidemia 21672433 E78.5 lipids are well controlled on atorvastat in 10mg daily. Refill given on medication and repeat labs will be due fasting in February Asthma 000677949 J45.90 9 Stable on albuterol HFA inhaler to use as needed Dominant n odule of thyroid 131721759 E04.1 all benign on FNA. Scoliosis deformity of spine 267101763 M41.9 History reviewed of scoliosis Body mass index 40+ - severely obese 130712645 Z68.43 bmi 54.4; routine thyroid function testing ordered for February labs Obesity 967571590 E66.9 discussed healthy diet, exercise, controllin g carbohydra yovany and added sugars in the diet Long-term drug therapy 688045098 Z79.899 CBC and CMP due again in February New daily persistent headache 0329356170 20828 G44.52 Screening serum prolactin level will also be ordered on the next labs [id number] Gregory Myrick MD [facility]one [address] [place] [address] 03/29/2024 16:16:54 04/01/2024 09:53:28 Body mass index 40+ - severely obese 055237947 Z68.43 bmi 55.3.; routine thyroid function testing ordered for February labs Morbid obesity 982481601 E66.01 Asthma 700419684 J45.90 9 Stable on albuterol HFA inhaler [...] actual nebulizer machine. Benign ess ential hypertension 7908944 I10 Continue losartan 100 mg daily and amlodipine 10mg daily and add hydrochlor othiazide 25 mg daily for persistent blood pressure elevation. 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 Uncontroll ed type 2 diabetes mellitus 522466910 E11.65 stable on mounjaro 5mg daily. plan to boost to mounjaro 7.5mg weekly. average 145 the last 2 weeks of CGM readings. Hyperlipidemia 03622634 E78.5 lipids are well controlled on atorvastat in 10mg daily. Refill given on medication and repeat labs will be due fasting in February New daily persistent headache [id number] 39041 G44.52 Screening serum prolactin level will also be ordered on the next labs Long-term drug therapy 396648571 Z79.899 CBC and CMP due again in February [id number] Gregory Myrick MD [facility] [address] [place] [address] 05/24/2024 14:20:00 05/24/2024 15:28:40 Uncontrolled type 2 diabetes mellitus 244893808 E11.65 6.6% a1c !!! Excellent results on mounjaro 7.5mg weekly. Eating less, cravings down, overall healthier feeling. Repeat A1c in July Benign ess ential hypertension 9727360 I10 bp 128/86. Continue losartan 100 mg daily and amlodipine 10mg daily and add hydrochlor othiazide 25 mg daily Asthma 590722251 J45.90 9 Stable on albuterol HFA inhaler [...] needs to get the actual nebulizer machine. Hyperlipidemia 34852897 E78.5 lipids are well controlled on atorvastat in 10mg daily. Repeat fasting lipids in July New daily persistent headache 7489970192 05217 G44.52 Some mild improvemen t in her headache. Body mass index 40+ - severely obese 021600355 Z68.43 bmi 52.7; Morbid obesity 932764026 E66.01 discussed healthy diet, exercise, controllin g carbohydra yovany and added sugars in the diet Long-term drug therapy 207778116 Z79.899 CBC and CMP due in July Liver enzy mes level above reference range 597979252 R74.01 pt does not want a liver u/s at this time due to cost. she wants to instead repeat labs next time. mild LFT elevation. Sleep apnea 15782837 G47 .30 Refer for home sleep study evaluation for sleep apnea which may be the underlying cause of her daily persistent headache Health Concerns Section Related Observation LastModified by Organization Detai ls LastModified Time None Recorded Concern Status LastModified by Organization Details LastModified Time None Recorded Advance Directives Directive None Recorded Payers Insurance Date Sequence Insurance Name Policy Number Policy Alegria Covered Member ID Alegria Member ID Guarantor Name 06/03/2024 1 [facility] [id number] Regine Galaviz [id number] Regine Galaviz 11/01/2023 1 [facility] [id number] Regine Galaviz [id number] Regine Galaviz Notes Date Note Type Note [...] requires follow-up MALIHA Gerardo Attn: Accounting, [address] [place], [address], [facility] 09/02/2023 17:23:48 11/01/19 24 text/htm l Asthma [...] back benign MALIHA Gerardo Attn: Accounting, [address] [place], [address], [facility] 11/05/2023 22:54:25 12/29/19 24 text/htm l Asthma [...] back benign MALIHA Gerardo Attn: Accounting, [address] [place], [address], [facility] 01/14/2024 19:00:50 03/29/19 25 text/htm l Asthma [...] mg daily MALIHA Gerardo Attn: Accounting, [address] [facility], [place], [address], [place] [facility] 03/29/2024 18:32:50 05/25/19 25 text/htm l Asthma F/UReported bypatient.Notes:Patient is [...] losartan and on amlodipine 10 mg daily Patient does have signs of sleep apnea. She has obesity and also some fatigue and daily headache upon waking MALIHA Gerardo Attn: Accounting, [address] [place], [address], [facility] 06/03/2024 09:43:58 OBGyn Episode No OBEpisode recorded.
[2024-09-03 11:42] LABS: Hematocrit 44.3 % (37.0-47.0); Hemoglobin 14.3 g/dL (12.0-15.0); Immature Granulocyte Percent A 0.8 % (0-0.5); Lymphocytes Absolute Auto 2.71 K/mm3 (0.9-3.2); Mean Corpuscular HGB Conc 32.3 g/dl (32-36); Mean Corpuscular Hemoglobin 26.5 pg (26-34); Mean Corpuscular Volume 82.2 fl (80-100); Nucleated Red Blood Cells Absolute Auto 0.000 K/mm3 (0.0-0.012); Nucleated Red Blood Cells Perc 0.0 % (0.0-0.2); Platelet Count Result 338 k/mm3 (150-375); Red Blood Count 5.39 M/mm3 (4.2-5.4); White Blood Count 13.0 K/mm3 (4.5-10.0)
[2024-09-03 11:56] LABS: Alanine Aminotransferase 39 U/L (6-35); Albumin Level 4.0 g/dL (3.5-5.1); Alkaline Phosphatase 62 U/L (38-126); Anion Gap 13 mmol/L (4-12); Aspartate Amino Transferase 39 U/L (14-36); Bilirubin,Total 0.4 mg/dL (0.2-1.3); Blood Urea Nitrogen 13 mg/dL (7-17); Calcium 9.2 mg/dL (8.4-10.2); Carbon Dioxide 20 mmol/L (22-30); Chloride 103 mmol/L (98-107); Estimated Glomerular Filt Rate > 60; Glucose 131 mg/dL (65-110); Potassium 3.3 mmol/L (3.4-5.0); Sodium 136 mmol/L (137-145); Total Protein 7.5 g/dL (6.3-8.2)
== END 2024-09-03 11:12 | disposition home or self-care (01) ==
LOC: ANHLAB 11:14
PROVIDERS: PCP Physician Assistant; Visit Provider Physician Assistant
DX: R79.9 Abnormal finding of blood chemistry, unspecified (principal)
CPT/HCPCS: 36415; 80053; 85025

== ENCOUNTER 2024-10-24 15:41 | Outpatient (CLI) | payer OTHER, SELFPAY ==
--- NOTE | ~2024-10-24 | US_ITS ---
US thyroid INDICATION: Thyroid nodules TECHNIQUE: Real-time sonographic images of the thyroid gland were obtained. COMPARISON: Ultrasound dated 08/12/2023 FINDINGS: The right thyroid lobe measures 4 x 2 x 1.2 cm. The left thyroid lobe measures 3.6 x 2.3 x 1.6 cm. Mildly heterogeneous thyroid echotexture. There are multiple small nodules of the right lobe, largest measuring 7 mm, stable compared with prior examination, TR 4. Stable left thyroid mass measuring 1.6 x 1.3 x 1.2 cm, TR 4. IMPRESSION: 1. Stable multinodular goiter. Consider follow-up ultrasound in 12 months. Reviewed, dictated and finalized at location O.
== END 2024-10-24 15:42 | disposition home or self-care (01) ==
LOC: MICIMG 15:43
PROVIDERS: PCP Physician Assistant; Visit Provider Otolaryngology
DX: E04.2 Nontoxic multinodular goiter (principal); K21.9 Gastro-esophageal reflux disease without esophagitis; R13.10 Dysphagia, unspecified
CPT/HCPCS: 76536

== ENCOUNTER 2025-01-02 08:22 | Outpatient (CLI) | payer OTHER, SELFPAY ==
--- OUTSIDE RECORDS SUMMARY | 2025-01-02 17:08 | XMS_ITS | Data Portability ---
Author Organization [facility] [employer], Main Office Address [address] [place] [address] Assessment No assessment recorded. Plan of Treatment Reminders Order Date Submit Date Provider Last Modified By Organization Details Last Modified Time Details Appointments None recorded. Lab TSH + free T4, serum 2022 023 [email or web address] [facility], [address], [place], [address], 4 08:53:34 microalbumi n, urine 2022 023 [email or web address] [facility], [address], [place], [address], 4 08:53:34 HbA1c (hemoglobin A1c), blood 2022 023 [email or web address] [facility], [address], [place], [address], 4 08:53:35 CBC w/ auto diff 2022 023 [email or web address] [facility], [address], [place], [address], 4 08:53:34 CMP, serum or plasma 2022 023 [email or web address] [facility], [address], [place], [address], 4 08:53:34 lipid panel, serum 2022 023 [email or web address] [facility], [address], [place], [address], 4 08:53:34 Referral None recorded. Procedures None recorded. Surgeries None recorded. Imaging None recorded. Medication Orders Farxiga 10 mg tablet 2022 023 [facility] [place], [address], 3 15:47:07 losartan 50 mg tablet 2022 023 [facility] [address] [place], [address], 3 15:47:05 atorvastati n 10 mg tablet 2022 023 [facility] [address] [place], [address], 3 15:47:04 Patient TargetsNo targets recorded. Patient InstructionsNo instructions recorded. Reason for Referral None Reported. Results Created Date Observation Date Name Description Value Unit Range Abnormal Flag Note LastModifiedBy Organization Detail LastModifiedTime Result Notes None recorded. Problems Name Problem SNOMED Code Status Onset Date Resolution Date Notes Provider Name and Address Organization Details Recorded Time Asthma 775943388 Active 2017 Not Available [facility] 3 19:14:24 Type 2 diabetes mellitus 75969099 Active 2017 Not Available [facility] 3 19:14:24 Hyperlipidemi a 80856434 Active 2019 Not Available [facility] 3 19:14:24 Benign essential hypertension 6798000 Active 2021 Not Available [facility] 3 19:14:24 Uncontrolled type 2 diabetes mellitus 096198920 Active 2021 Not Available [facility] 3 19:14:24 Notes:COVID-19 pos 03/08/21 Problem [...] % 91 /min 16 /min 97.9 [degF] 555747. 91 g 140/80 mm[Hg] Not Available [facility] 3 19:14:00 Date Recorded Body mass index (BMI) Body height Oxygen saturation Oxygen saturation in Arterial blood by Pulse oximetry Heart rate Respiratory rate Body temperature Body weight Systolic And Diastolic Provider Name and Address Organization Details Last Updated DateTime 2 58.3 kg/m2 157.48 cm 98 % 98 % 108 /min 16 /min 98.2 [degF] 313312. 25 g 138/88 mm[Hg] Not Available [facility] 3 19:14:00 Date Recorded Body height Body temperature Body mass index (BMI) Body weight Respiratory rate Oxygen saturation Oxygen saturation in Arterial blood by Pulse oximetry Heart rate Systolic And Diastolic Provider Name and Address Organization Details Last Updated DateTime 3 157.48 cm 97.2 [degF] 54.9 kg/m2 380894. 71 g 16 /min 98 % 98 % 97 /min 128/72 mm[Hg] SUSIE Deleon [place] [employer] [facility] 3 15:22:48 Social History Question Answer Notes LastModified by Organizat ion Details LastModified Time Tobacco Smoking Status Never Smoker Crystal Fitzgerald, RMByron null, [place] [facility] 02/06/2023 15:17:23 Do You Have An Advance Directive? No [id number] Information not available 04/27/2022 What Is Your Level Of Caffeine Consumption? Heavy [id number] Information not available 04/27/2022 In The 14 Days Before Symptom Onset, Have You Had Close Contact With A Laboratory-confirm ed COVID-19 While That Case Was Ill? No [email or web address] Information n ot available 02/06/2023 In The 14 Days Before Symptom Onset, Have You Had Close Contact With A Person Who Is Under Investigation For COVID-19 While That Person Was Ill? No [email or web address] Information not available 02/06/2023 What Type Of Diet Are You Following? REGULAR MIGRATION.[id number] 026 Information not available 04/27/2022 Have There Been Any Changes To Your Family Or Social Situation? No [email or web address] Information no t available 02/06/2023 Are There Any Guns Present In Your Home? No [email or web address] Information not available 02/06/2023 Do You Use Insect Repellent Routinely? No [email or web address] Information not available 02/06/2023 Do You Have A Medical Power Of Lunch Counter Manager? No [email or web address] Information not available 02/06/2023 What Is Your Relationship Status? Single MIGRATION.[id number] 026 Information not available 04/27/2022 Do You Use Your Seat Belt Or Car Seat Routinely? Yes [email or web address] Information not available 02/06/2023 Do You Have Smoke And Carbon Monoxide Detectors In Your Home? Yes Information not available 02/06/2023 Do You Use Sunscreen Routinely? Yes [email or web address] Information not available 02/06/2023 Have You Recently Traveled Abroad? No [email or web address] Information not available 02/06/2023 Do You Have Any Dietary Restrictions? No [email or web address] Information not available 02/06/2023 Sex: Unknown Functional Status Question Answer Note LastModified by Organizat ion Details LastModified Time Do you use any illicit or recreational drugs? No [email or web address] Information not available 02/06/2023 Do you or have you ever used any other forms of tobacco or nicotine? No [email or web address] Information not available 02/06/2023 What is your level of alcohol consumption? Occasional [id number] Information not available 04/27/2022 Are you currently employed? 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 Occasional [id number].[id number] Information not available 04/27/2022 Mental Status None recorded. Family History Relationship Description Onset Age of this Age Resolved Age Notes LastModified by Organization Details LastModified Time Father Diabetes mellitus [id number] Not available 04/27/2022 19:13:18 Father Hypertensive disorder [id number] Not available 04/27/2022 19:13:18 Mother Diabetes mellitus [id number].313 [id number] Not available 04/27/2022 19:13:18 Medical History Condition Response HEADACHES/MIGRAINES Y DIZZINESS Y OBESITY Y ASTHMA Y BACK / NECK PROBLEMS Y Gynecological HistoryNo gynecological history recorded. Obstetrics History GPAL:G 0 P 0 0 0 0 Immunizations Vaccine Type Date Status Note Provider Nam e and Address Organization Details Recorded Time Influenza, split virus, quadrivalent, preservative 2 completed Not Available [facility] 04/27/2022 19:15:28 influenza, unspecified formulation 9 completed Not Available [facility] 04/27/2022 19:15:28 influenza, unspecified formulation 6 completed Not Available [facility] 04/27/2022 19:15:28 SARS-COV-2 (COVID-19) vaccine, UNSPECIFIED 3 completed SUSIE Deleon, [place] [employer] [facility] 12/19/2022 09:48:49 Past Encounters Encounter ID Performer Location Encounter Start Date Encounter Closed Date Diagnosis/Indication Diagnosis SNOMED-CT Code Diagnosis ICD10 Code Diagnosis IMO Codes Diagnosis Note [id number] Gregory Myrick MD [facility] [place] [address] [place] [address] 08/13/2021 00:00:00 08/20/2021 15:58:11 [id number] Gregory Myrick MD [facility] Internal [facility] [place] [address] [place] [address] 09/24/2021 00:00:00 09/24/2021 16:27:00 [id number] MALIHA Gerardo [facility] [place] [address] [place] [address] 02/06/2023 15:16:11 02/06/2023 15:46:53 Adult health examination 443085406 Z00.01 annual well exam completed [facility] ed type 2 diabetes mellitus 206531379 E11.65 due for labs. refill farxiga 10mg daily Benign ess ential hypertension 5439258 I10 start losartan 50mg daily. Hyperlipidemia 96876599 E78.5 refill atorvastat in 10mg daily. due for fasting lipids Asthma 623498361 J45.90 9 inhalers have been refilled. Body mass index 40+ - severely obese 516070476 Z68.43 screening TFT panel. Long-term drug therapy 164414455 Z79.899 routine CBC and CMP Health Concerns Section Related Observation LastModified by Organization Detai ls LastModified Time None Recorded Concern Status LastModified by Organization Details LastModified Time None Recorded Advance Directives Directive N: Payers Insurance Date Sequence Insurance Name Policy Number Policy Alegria Covered Member ID Alegria Member ID Guarantor Name 03/03/2023 1 [facility] [id number] Regine Galaviz [id number] Regine Galaviz Notes Date Note Type Note Provider Name and Address Organization Details Recorded Time 02/07/20 23 text/ht ml HyperlipidemiaReported by PatientHPIFor duration, patient reportschronic. For compliance, patient reportsnoncompliant with dietanddoes not exercisebut reportscompliant. For risk factors, patient reportsdiabetesandhypertension. For control, patient reportsusually well controlled. For complications, patient reportsno coronary artery disease,no peripheral artery disease, andno cardiovascular disease. HypertensionReported by PatientHPIFor duration, patient reportshas noted for years. For onset/timing, patient reportsbetter. For alleviating factors, patient reportsmedication. For associated symptoms, patient reportsno shortness of breath,no fatigue,no palpitations,no decline in exercise capacity, andno snoring. DiabetesReported by PatientHPIFor compliance, patient reportsnoncompliant with diet,noncompliant with home glucose monitoring,has not had dietitian visit in last year,does not wear a medic alert bracelet or necklace, anddoes not keep rapid-acting carbohydrate in carbut reportscompliant with medications,compliant with follow-up visits,compliant with diet,compliant with home glucose monitoring, andhad eye doctor visit in last year. For self care, patient reportsnot monitoring home glucose. For context, patient reportsnot taking aspirin dailybut reportsseeing eye doctor regularlyandchecking feet regularly. For associated symptoms, patient reportsheadachesandincreased urinationbut reportsno weight gain,no weight loss,no dizziness,no sweats,no headaches,no confusion,no increased thirst,no increased appetite,no increased urination,no blurred vision,no numbness of feet,no calluses on feet,no coronary artery disease,no kidney disease,no peripheral vascular disease,no diabetic retinopathy, andno diabetic neuropathy. For duration, patient reportschronic. For control, patient reportsusually well controlled. Wellness MALIHA Gerardo [address] [facility], [facility] [address], [place], [address], [facility] [employer] 02/23/2023 11:47:16 OBGyn Episode No OBEpisode recorded.
--- OUTSIDE RECORDS SUMMARY | 2025-01-02 17:08 | XMS_ITS | Patient Health Record ---
Author Organization [facility] Address [address] [place] [address] Care Team Providers Care Party Coordinator Name Role Phone Kai Wiggins Primary Care Provider Reason For Referral No Information Immunizations Vaccine Route Administration Date Status Comme nts COVID-19 Vaccine Pfizer 2ND IM Intramuscular 02/15/2020 Administered EUA dated: 01/2020. 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 Patient tolerated well. 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 EUA given. Patient tolerated well. Plan Of Treatment No Information
--- OUTSIDE RECORDS SUMMARY | 2025-01-02 17:08 | XMS_ITS | Clinical Summary ---
Author Organization [facility] Address [address] [place] [address] Phone Care Team Providers Care Pin Inserter Regulator Name Role Phone Kavya Perez Primary Care Provider [phone] Medications traMADol (ULTRAM) 50 MG TabletIndicatio ns:Chest [...] 19+ 3-dose series) 2009 Pap Smear 11/08/2011 Human Papillomavirus (HPV) Immunization (1 - 3-dose SCDM series) 2017 Cervical Cancer Screening (CCS) 2020 HPV/Cotest 2020 Influenza Immunization (#1) 10/28/202410/29, 11/11/2020, 11/13/2019 SARS-COV-2 Immunization ( season) 2024 12/26/2021, 04/09/2021, 03/06/2020, Additional history exists Respiratory [...] patient's age to complete this topic Insurance [facility] Care Teams Pin Inserter Regulator Relationship Specialty Start Date End Date Kavya Perez PA PCP - General Family Medicine 08/19/22
--- OUTSIDE RECORDS SUMMARY | 2025-01-02 17:08 | XMS_ITS | Data Portability ---
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 Not available 06/03/2024 09:43:40 09/13/2024 09/13/2024 white blood cell count still slightly elevated that we will continue to monitor closely it is currently at 13.0. Also her potassium needs to be is stable. increased to 20 mEq daily as she continues to be slightly low at 3.3. Liver enzymes are also stable Not available 09/30/2024 12:12:04 Plan of Treatment Reminders Order Date Submit Date Provider Last Modified By Organization Details Last Modified Time Details Appointments ANY 15 2024 08:30A M MALIHA Gerardo Not available Not available Not available Lab CMP, serum or plasma 2024 025 [facility] Outpatient Registration Lab/Ekg, [address], [place], [address], 09/13/2024 16:46:40 vitamin B12 + folate, serum or blood [address] Outpatient Registration Lab/Ekg, [address] [place] [address] [address], [place], [address], 09/13/2024 16:46:40 TSH + free T4, serum [address] [place] [address] Outpatient Registration Lab/Ekg, [address] [place] [address] [address], [place], [address], 09/13/2024 16:46:40 lipid panel, serum [address] [place] [address] Outpatient Registration Lab/Ekg, [address] [place] [address] [address], [place], [address], 09/13/2024 16:46:40 CBC w/ auto diff [address] [place] [address] Outpatient Registration Lab/Ekg, [address] [place] [address] [address], [place], [address], 09/13/2024 16:46:40 leukocyte s phosphata se, wbcs [address] Outpatient Registration Lab/Ekg, [address] [place] [address] [address], [place], [address], 09/13/2024 16:46:40 HbA1c (hemoglob in A1c), blood [address] [place] [address] Outpatient Registration Lab/Ekg, [address] [place] [address] [address], [place], [address], 09/13/2024 16:46:40 HbA1c (hemoglob in A1c), blood [address] [place] [address] (Lab), [address] [place] [address] [address], [place], [address], 08/19/2024 14:58:05 CBC w/ auto diff [address] [place] [address] (Lab), [facility] [address], [place], [address], 08/19/2024 15:01:39 CMP, serum or plasma [address] [place] [address] (Lab), [address] [place] [address] [address], [place], [address], 08/19/2024 15:01:25 lipid panel, serum [address] [place] [address] (Lab), [address] [place] [address] [address], [place], [address], 08/19/2024 15:01:49 CBC w/ auto diff [address] [place] [address] (Lab), [address] [place] [address] [address], [place], [address], 05/24/2024 15:43:15 CMP, serum or plasma [address] [place] [address] (Lab), [address] [place] [address] [address], [place], [address], 05/24/2024 15:43:21 lipid panel, serum [address] [place] [address] (Lab), [address] [place] [address] [address], [place], [address], 05/24/2024 15:42:57 TSH + free T4, serum [address] [place] [address] (Lab), [address] [place] [address] [address], [place], [address], 05/24/2024 15:42:19 HbA1c (hemoglob in A1c), blood [address] [place] [address] (Lab), [address] [place] [address] [address], [place], [address], 05/24/2024 15:41:51 prolactin , serum [address] [place] [address] (Lab), [address] [place] [address] [address], [place], [address], 05/24/2024 15:42:34 CBC w/ auto diff [address] [place] [address] (Lab), [address] [place] [address] [address], [place], [address], 04/01/2024 10:38:33 CMP, serum or plasma [address] [place] [address] (Lab), [address] [place] [address] [address], [place], [address], 04/01/2024 10:39:37 lipid panel, serum [address] [place] [address] (Lab), [address] [place] [address] [address], [place], [address], 04/01/2024 10:38:21 TSH + free T4, serum [address] [place] [address] (Lab), [address] [place] [address] [address], [place], [address], 04/01/2024 10:40:08 HbA1c (hemoglob in A1c), blood [address] [place] [address] (Lab), [address] [place] [address] [address], [place], [address], 04/01/2024 10:38:02 prolactin , serum [address] [place] [address] (Lab), [address] [place] [address] [address], [place], [address], 04/01/2024 10:39:51 HbA1c (hemoglob in A1c), blood 2023 024 In-Office Order, Internal Use Only DO Not Attach Compendium DO Not Attach Compendium, Do Not Delete/merge, [id number] 11/01/2023 09:24:34 Referral None recorded. Procedures home sleep testing (PROC) [address] [place] [address] [facility], [address], [place], [address], 08/14/2024 15:22:58 Surgeries None recorded. Imaging None recorded. Medication Orders potassium chloride ER 10 mEq tablet,ex tended release 2024 025 [facility], [address] [facility], [place], [address], 09/13/2024 16:46:45 hydrochlo rothiazid e 25 mg tablet 2024 025 [facility], [address] [employer] [facility], [place], [address], 03/29/2024 16:56:32 atorvasta tin 10 mg tablet 2023 024 [email or web address] [address], [address] [employer] [facility], [place], [address], 09/13/2024 16:17:16 Farxiga 10 mg tablet 2023 024 [facility], [address] [employer] [facility], [place], [address], 12/29/2023 17:15:34 Mounjaro 5 mg/0.5 mL subcutane ous pen injector [email or web address] [place] [address] Pharmacy [address], [address] [employer] [facility], [place], [address], 05/12/2024 21:28:23 hydrochlo rothiazid e 25 mg tablet 2023 024 [facility] [address], [address] [employer] [facility], [place], [address], 12/29/2023 17:25:22 Qvar RediHaler 80 mcg/actua tion HFA breath activated aerosol 2023 025 [facility] [address], [address] [employer] [facility], [place], [address], 03/29/2024 16:47:04 losartan 100 mg tablet 2023 024 [facility] [address] [place], [address], 11/01/2023 09:24:58 amlodipin e 10 mg tablet 2023 024 [email or web address] [address] [place], [address], 09/13/2024 16:17:20 Patient TargetsNo targets recorded. Patient Instructions Encounter Date Encounter Id Patient Instructions Last Modified By Organization Details Last Modified Time 03/29/2024 [id number] A healthy lifestyle: care instructions [facility]5 Not available 03/29/2024 16:46:01 05/24/2024 [id number] A healthy lifestyle: care instructions [facility] Not available 05/24/2024 15:16:02 09/13/2024 [id number] A healthy lifestyle: care instructions [facility] Not available 09/13/2024 16:46:40 Reason for Referral None Reported. Results Created Date Observation Date Name Description Value Unit Range Abnormal Flag Note LastModifiedBy Organization Detail LastModifiedTime 11/01/1911/01/2023 HbA1c (hemo globi n A1c), blood HbA1c 7.7% Not Available In-Office Order Internal Use Only DO Not Attach Compendium DO Not Attach Compendium, Do Not Delete/merge, [id number] 11/01/2023 09:24:12 10/09/1910/09/2023 fine needl e aspir ation , ultra sound guide d, thyro id (PROC ) No observ ation record ed. [facility] (Imaging) [address], [place], [address], 11/01/2023 09:30:53 10/31/1910/24/2024 US, thyro id No observ ation record ed. [facility] [address], [place], [address], 10/31/2024 17:12:40 Result Notes None recorded. Problems Name Problem SNOMED Code Status Onset Date Resolution Date Notes Provider Name and Address Organization Details Recorded Time Obesity 583039796 Active 2023 MALIHA Gerardo Attn: Accountin g,[address], [place], [address], [place] [facility] 4 17:16:27 Long-term drug therapy Active 2023 MALIHA Gerardo Attn: Accountin g,[address], [place], [address], [place] [facility] 4 17:16:31 Asthma 527431233 Active 2023 MALIHA Gerardo Attn: Accountin g,[address], [place], [address], [place] [facility] 4 17:16:33 Benign essential hypertensio n 4583107 Active 2023 MALIHA Gerardo Attn: Accountin g,[address] [facility], [place], [address], [place] [facility] 4 17:16:34 Dominant nodule of thyroid 711480067 Active 2023 MALIHA Gerardo Attn: Accountin g,[address] [facility], [place], [address], [place] [facility] 4 17:16:35 Uncontrolle d type 2 diabetes mellitus 944141886 Active 2023 MALIHA Gerardo Attn: Accountin g,[address], [place], [address], [place] [facility] 4 17:16:36 Positive screening for depression on PHQ-9 (Patient Health Questionnai re 9) 2083345803167 00 Active 2023 MALIHA Gerardo Attn: Accountin g,[address] [facility], [place], [address], [place] [facility] 4 17:23:31 Scoliosis deformity of spine 988639204 Active 2023 MALIHA Gerardo Attn: Raisa ruddy,[address] [place], [address], [place] [facility] 4 09:17:49 Hyperlipide [place] 57267507 Active 2023 MALIHA Gerardo Attn: Jatinpatricia fox,[address] [place], [address], [place] [facility] 4 09:35:02 New daily persistent headache 9862621677175 05 Active 2023 MALIHA Gerardo Attn: Jatinpatricia fox,[address] [place], [address], [place] [facility] 4 17:27:58 Morbid obesity 063293581 Active 2024 MALIHA Gerardo Attn: Raisa ruddy,[address] [place], [address], [place] [facility] 5 16:45:42 Liver enzymes level above reference range 649300347 Active 2024 MALIHA Gerardo Attn: Jatinpatricia fox,[address] [place], [address], [place] [facility] 5 15:07:20 Sleep apnea 03343137 Active 2024 MALIHA Gerardo Attn: Raisa ruddy,[address] [place], [address], [place] [facility] 5 09:42:57 Body mass index 40+ - severely obese 387336388 Active 2024 MALIHA Gerardo Attn: Jatinpatricia fox,[address] [place], [address], [place] [facility] 5 16:44:17 Problem Notes None recorded. Procedures Surgical History Date Name Laterality Status Provider Name and Address Organization Details Recorded Time Diabetic Foot Exam completed Clarissa Contreras MA [facility] 11/01/2023 09:03:52 Imaging Results None recorded. Procedure Notes None recorded. Medical Equipment None Reported. Allergies Allergen ID Allergen Name Allergen Category Reaction Reaction Severity Criticality Documentation Date Start Date Code Code System Note Provider Name and Address Organization Details Recorded Time 597832 metformin medicatio n other mild low 12/29/2023 6809 RxNorm unabl e to dustin dailey MALIHA Gerardo Attn: Jatinpatricia ruddy,[address] [facility], [place], [address], [facility] 17:13:15 Medications Name Sig Start Date Stop [...] ER 10 mEq tablet,ex tended release Take 2 tablets every day by oral route, for torrie m. 2024 active Not Available Not Available Not Avai lable amlodipin e 5 mg tablet TAKE 1 TABLET BY MOUTH ONCE DAILY 10/31 completed Not Available Not Available Not Available tramadol 50 mg tablet TAKE 1 TABLET BY MOUTH EVERY 8 HOURS NEEDED FOR MODERATE OR MORE SEVERE PAIN active Not Available Not Available No t Available glimepiri de 2 mg tablet Take 1 tablet twice a day by oral route for 90 days. active Not Available Not Available No t Available amlodipin e 10 mg tablet Take 1 tablet by mouth once daily 2024 active Not Available Not Available Not Avai lable metformin 1,000 mg tablet TAKE 1 TABLET BY MOUTH TWICE DAILY WITH MEALS 08/20 completed Not Available Not Available Not Available losartan 25 mg tablet TAKE 1 TABLET BY MOUTH ONCE DAILY 07/11 completed Not Available Not Available Not Available hydrochlo rothiazid e 25 mg tablet TAKE 1 TABLET BY MOUTH ONCE DAILY IN THE MORNING active Not Available Not Available No t Available methylpre dnisolone 4 mg tablets in a dose pack TAKE BY MOUTH DIRECTED ON INSIDE OF PACKAGE 08/17 completed Not Available Not Available Not Available albuterol sulfate HFA 90 mcg/actua tion aerosol inhaler INHALE 2 PUFFS BY MOUTH EVERY 4 HOURS NEEDED active Not Available Not Available No t Available losartan 100 mg tablet Take 1 tablet by mouth once daily 2024 active Not Available Not Available Not Avai lable Flovent HFA 110 mcg/actua tion aerosol inhaler [...] lable Dexcom G7 Sensor device USE DIRECTED FOR 10 DAYS active Not Available Not Available No t [...] Last Updated DateTime 157.48 cm 55.3 kg/m2 307100. 33 g 105 /min 98 % 98 % 162/90 mm[Hg] Kiersten Moreno MA [facility] 16:26:10 Date Recorded Systolic And Diastolic Provider Name and Address Organization Details Last Updated DateTime 05/24/2024 128/86 mm[Hg] MALIHA Gerardo Attn: Accounting,[address] [place], [address], [facility] 05/24/2024 15:13:47 Date Recorded Body height Body mass index (BMI) Body weight Oxygen saturation Oxygen saturation in Arterial blood by Pulse oximetry Heart rate Respiratory rate Systolic And Diastolic Provider Name and Address Organization Details Last Updated DateTime 5 157.48 cm 52.7 kg/m2 040395. 6 g 98 % 98 % 108 /min 20 /min 138/82 mm[Hg] Clarissa Contreras MA [facility] 14:47:17 Date Recorded Body mass index (BMI) Body weight Systolic And Diastolic Provider Name and Address Organization Details Last Updated DateTime 09/13/2024 49.4 kg/m2 927726.94 g 148/90 mm[Hg] MALIHA Gerardo Attn: Accounting,[address] [place], [address], [facility] 09/13/2024 16:46:10 Date Recorded Body height Oxygen saturation Oxygen saturation in Arterial blood by Pulse oximetry Heart rate Systolic And Diastolic Provider Name and Address Organization Details Last Updated DateTime 5 157.48 cm 97 % 97 % 93 /min 142/88 mm[Hg] Clarissa Contreras MA [facility] 5 16:20:04 Date Recorded Systolic And Diastolic Systolic And Diastolic Provider Name and Address Organization Details Last Updated DateTime 11/01/2023 160/100 mm[Hg] 160/100 mm[Hg] MALIHA Gerardo Attn: Accounting, [place], [address], [facility] 11/01/2023 09:31:29 Date Recorded Body height Body mass index (BMI) Body weight Respiratory rate Oxygen saturation Oxygen saturation in Arterial blood by Pulse oximetry Heart rate Systolic And Diastolic Provider Name and Address Organization Details Last Updated DateTime 157.48 cm 54.4 kg/m2 657611. 51 g 20 /min 100 % 100 % 93 /min 136/88 mm[Hg] Clarissa Contreras MA [facility] 09:02:40 Date Recorded Respiratory rate Systolic And Diastolic Systolic And Diastolic Provider Name and Address Organization Details Last Updated DateTime 12/29/2023 18 /min 160/90 mm[Hg] 160/90 mm[Hg] MALIHA Gerardo Attn: Accounting, [address] [place], [address], [facility] 12/29/2023 17:30:13 Date Recorded Body height Body mass index (BMI) Body weight Oxygen saturation Oxygen saturation in Arterial blood by Pulse oximetry Heart rate Systolic And Diastolic Provider Name and Address Organization Details Last Updated DateTime 4 157.48 cm 55.4 kg/m2 370026. 49 g 98 % 98 % 102 /min 140/88 mm[Hg] Clarissa Contreras MA [facility] 16:50:34 Social History Question Answer Notes LastModified by Organizat ion Details LastModified Time Tobacco Smoking Status Never Smoker EILEEN Sorto, [facility] 08/21/2023 16:43:59 How Many Years Have You [...] Date Of Your Most Recent Tobacco Screening? 09/13/2024 [email or web address] Information not available 09/13/2024 What Is Your Relationship Status? Single Information [...] 08/21/2023 Are you able to care for yourself independently? 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 None Information not available 08/21/2023 Mental Status Question Answer Note LastModified by Organization D etails LastModified Time Do you feel stressed (tense, restless, nervous, or anxious, or unable to sleep at night)? [id number] Information not available 08/21/2023 Family History Relationship [...] Current Control Method BCPs Date of LMP 08/21/2024 LMP Definite Obstetrics History GPAL:G 0 P [...] [place], [place] [facility] 01/22/2024 09:56:07 Influenza, recombinant, trivalent, PF 5 completed Clarissa Contreras [place] [facility] 11/12/2024 15:16:25 HepB-CpG 5 completed Clarissa Contreras [place] [facility] 11/12/2024 15:17:58 COVID-19, mRNA, LNP-S, bivalent, PF, 10 mcg/0.2 mL 5 completed Clarissa Contreras [place] [facility] 12/10/2024 12:11:42 HepB-CpG 5 completed Clarissa Contreras [place] [facility] 12/10/2024 12:12:44 Past Encounters Encounter ID Performer Location Encounter Start Date Encounter Closed Date Diagnosis/Indication Diagnosis SNOMED-CT Code Diagnosis ICD10 Code Diagnosis IMO Codes Diagnosis Note [id number] Gregory Myrick MD [facility] [employer] [address] [place] [address] 08/21/2023 16:22:50 08/21/2023 17:37:56 Dominant nodule of thyroid 154230461 E04.1 Referral for fine-needl e aspiration of the left-sided thyroid nodule and follow-up referral to Ear Nose and Throat placed today. Uncontroll ed type 2 diabetes mellitus 545266563 E11.65 Fingerstic k A1c in the office is 9.2% today. Continue Farxiga 10 mg daily and add glimepirid e 2 mg twice daily with meal. Patient would also like to have a [employer] G7 testing device. Benign ess ential hypertension 7272494 I10 Continue losartan 100 mg daily and add amlodipine 5 mg daily for persistent blood pressure elevation today in the 140/108 range. Asthma 506591755 J45.90 9 Refill given on albuterol HFA inhaler to use as needed Cholesterol screening 27 2764382 Z13.220 Fasting lipid panel is due Long-term drug therapy 808159410 Z79.899 Routine CMP and CBC labs are due Thyroid di sorder screening 804482435 Z13.29 Routine thyroid function testing is ordered Body mass index 40+ - severely obese 610214235 Z68.43 Obesity 444460151 E66.8 discussed healthy diet, exercise, controllin g carbohydra yovany and added sugars in the diet Positive s creening for depression on PHQ-9 (Patient Health Questionnaire 9) 1416859918 14597 Z13.31 Patient scored 7 on screening today. She feels stable with her mental health. [id number] Gregory Myrick MD [facility] [employer] [address] [place] [address] 11/01/2023 08:47:30 11/01/2023 10:09:14 Benign essential hypertension 5125428 I10 Continue losartan 100 mg daily and increase to amlodipine 10mg daily for persistent blood pressure elevation today Uncontroll ed type 2 diabetes mellitus 083331401 E11.65 Fingerstic k A1c 7.7% in the office is today. Continue Farxiga 10 mg daily and add glimepirid e 2 mg twice daily with meal. eye appt with [facility] in [place]. Dominant n odule of thyroid 874637049 E04.1 all benign on FNA. Asthma 199469735 J45.90 9 Refill given on albuterol HFA inhaler to use as needed Long-term drug therapy 022576940 Z79.899 order labs at next appt Dec 28 appt. Body mass index 40+ - severely obese 873033567 Z68.43 bmi 54.4 Obesity 974830792 E66.8 discussed healthy diet, exercise, controllin g carbohydra yovany and added sugars in the diet Adult heal th examination 523602910 Z00.01 annual wellness exam completed. Scoliosis deformity of spine 586995967 M41.9 History reviewed of scoliosis Hyperlipidemia 62084436 E78.5 lipids are well controlled on atorvastat in 10mg daily. [id number] Gregory Myrick MD [facility] [place] [address] [place] [address] 12/29/2023 16:24:03 01/17/2024 14:57:55 Uncontrolled type 2 diabetes mellitus 350739756 E11.65 Continue Farxiga 10 mg daily and add glimepirid e 2 mg twice daily with meal. Trial of Mounjaro 2.5 mg once weekly sample for a free month given. She would then increase to Mounjaro 5 mg weekly thereafter .feb 08 eye appt with [facility] in [place]. Benign ess ential hypertension 1689560 I10 Continue losartan 100 mg daily and amlodipine 10mg daily and add hydrochlor othiazide 25 mg daily for persistent blood pressure elevation. Hopefully this will also help her headaches that are related to the elevated pressure. Hyperlipidemia 56113567 E78.5 lipids are well controlled on atorvastat in 10mg daily. Refill given on medication and repeat labs will be due fasting in February Asthma 367677713 J45.90 9 Stable on albuterol HFA inhaler to use as needed Dominant n odule of thyroid 111169072 E04.1 all benign on FNA. Scoliosis deformity of spine 388945667 M41.9 History reviewed of scoliosis Body mass index 40+ - severely obese 167679048 Z68.43 bmi 54.4; routine thyroid function testing ordered for February labs Obesity 583244496 E66.9 discussed healthy diet, exercise, controllin g carbohydra yovany and added sugars in the diet Long-term drug therapy 586088319 Z79.899 CBC and CMP due again in February New daily persistent headache 4909838909 37573 G44.52 Screening serum prolactin level will also be ordered on the next labs [id number] Gregory Myrick MD [facility] [employer] [address] [place] [address] 03/29/2024 16:16:54 04/01/2024 09:53:28 Body mass index 40+ - severely obese 283896989 Z68.43 bmi 55.3.; routine thyroid function testing ordered for February labs Morbid obesity 889412706 E66.01 Asthma 477795716 J45.90 9 Stable on albuterol HFA inhaler [...] actual nebulizer machine. Benign ess ential hypertension 4785737 I10 Continue losartan 100 mg daily and amlodipine 10mg daily and add hydrochlor othiazide 25 mg daily for persistent blood pressure elevation. 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 Uncontroll ed type 2 diabetes mellitus 441028266 E11.65 stable on mounjaro 5mg daily. plan to boost to mounjaro 7.5mg weekly. average 145 the last 2 weeks of CGM readings. Hyperlipidemia 23104231 E78.5 lipids are well controlled on atorvastat in 10mg daily. Refill given on medication and repeat labs will be due fasting in February New daily persistent headache 8539146081 75523 G44.52 Screening serum prolactin level will also be ordered on the next labs Long-term drug therapy 570369752 Z79.899 CBC and CMP due again in February [id number] Gregory Myrick MD [facility] [employer] [address] [place] [address] 05/24/2024 14:20:00 05/24/2024 15:28:40 Uncontrolled type 2 diabetes mellitus 263624944 E11.65 6.6% a1c !!! Excellent results on mounjaro 7.5mg weekly. Eating less, cravings down, overall healthier feeling. Repeat A1c in July Benign ess ential hypertension 9751570 I10 bp 128/86. Continue losartan 100 mg daily and amlodipine 10mg daily and add hydrochlor othiazide 25 mg daily Asthma 835134228 J45.90 9 Stable on albuterol HFA inhaler [...] to get the actual nebulizer machine. Hyperlipidemia 41123968 E78.5 lipids are well controlled on atorvastat in 10mg daily. Repeat fasting lipids in July New daily persistent headache 3793659393 68373 G44.52 Some mild improvemen t in her headache. Body mass index 40+ - severely obese 686117366 Z68.43 bmi 52.7; Morbid obesity 744137121 E66.01 discussed healthy diet, exercise, controllin g carbohydra yovany and added sugars in the diet Long-term drug therapy 469463532 Z79.899 CBC and CMP due in July Liver enzy mes level above reference range 153515430 R74.01 pt does not want a liver u/s at this time due to cost. she wants to instead repeat labs next time. mild LFT elevation. Sleep apnea 40745913 G47 .30 Refer for home sleep study evaluation for sleep apnea which may be the underlying cause of her daily persistent headache [id number] Gregory Myrick MD [facility] [facility] [place] [address] [place] [address] 09/13/2024 16:04:43 09/23/2024 15:03:38 Hypokalemia [id number] E87.6 9791 Potassium still decreased at 3.3. Boost 2 potassium chloride 20 mEq daily Leukocytosis 609920549 D 72.829 [id number] White blood cell count was increased at 13.0. This may have been inflammati on related. We will send for repeat CBC with diff and a leukocyte phosphatas e evaluation on her next set of labs in December. Uncontroll ed type 2 diabetes mellitus [id number] E11.65 6.6% a1c !!! Excellent results on mounjaro 10 mg weekly. Eating less, cravings down, overall healthier feeling. Next A1c due in December Benign ess ential hypertension [id number] I10 Blood pressure is borderline today but has been stable leading up to this. Continue losartan 100 mg daily and amlodipine 10mg daily and add hydrochlor othiazide 25 mg daily Asthma [id number] J45.90 9 Stable on albuterol HFA inhaler [...] to get the actual nebulizer machine. Hyperlipidemia 86140753 E78.5 lipids are well controlled on atorvastat in 10mg daily. Repeat fasting lipids in December New daily persistent headache [id number] 17742 G44.52 still frontal location. As above needs evaluated for sleep apnea that may be contributi ng to daily headache Morbid obesity 650957749 E66.01 discussed healthy diet, exercise, controllin g carbohydra yovany and added sugars in the diet Long-term drug therapy [id number] Z79.899 Full labs ordered for December Sleep apnea 02438179 G47 .30 Refer for home sleep study evaluation for sleep apnea which may be the underlying cause of her daily persistent headache. she still has order to complete. encouraged her to do so Body mass index 40+ - severely obese [id number] Z68.42 278277 BMI 49.4 Health Concerns Section Related Observation LastModified by Organization Detai ls LastModified Time None Recorded Concern Status LastModified by Organization Details LastModified Time None Recorded Advance Directives Directive None Recorded Payers Insurance Date Sequence Insurance Name Policy Number Policy Alegria Covered Member ID Alegria Member ID Guarantor Name 09/30/2024 1 [facility] [id number] Regine Galaviz [id number] Regine Galaviz 11/01/2023 1 [facility]) [id number] Regine Galaviz [id number] Regine Galaviz Notes Date Note Type Note Provider Name and Address Organization Details Recorded Time 4 text/html HyperlipidemiaReported by PatientPatient has underlying hyperlipidemia and is taking atorvastatin 10 mg daily. She is due for labs. HypertensionReported by PatientPatient was increased to 100 mg of losartan via case note. Blood pressure is still elevated today. DiabetesReported by PatientPatient is taking Farxiga 10 mg daily, she has been unable to tolerate metformin therapy due to GI issues Asthma F/UReported by PatientPatient is taking albuterol inhaler as needed and QVAR ready inhaler which is what insurance will cover. Asthma is stable at this time. HeadacheReported by PatientPt. states that she has still being having headaches daily, or sometimes it goes into a Migraine Thyroid/Parathyroid NoduleReported by PatientCT of the head brain and neck in the emergency room showed a dominant thyroid nodule on the left side that requires follow-up and biopsy came back benign MALIHA Gerarod Attn: Accounting,[address] [place], [address], [facility] 11/05/2023 22:54:25 4 text/html HyperlipidemiaReported by PatientPatient has underlying hyperlipidemia and is taking atorvastatin 10 mg daily. She is due for labs. HypertensionReported by PatientPatient was increased to 100 mg of losartan and on amlodipine 10 mg daily DiabetesReported by PatientPatient is taking Farxiga 10 mg daily, she has been unable to tolerate metformin therapy due to GI issues Asthma F/UReported by PatientPatient is taking albuterol inhaler as needed and QVAR ready inhaler which is what insurance will cover. Asthma is stable at this time. HeadacheReported by PatientPt. states that she has still being having headaches daily, or sometimes it goes into a Migraine Thyroid/Parathyroid NoduleReported by PatientCT of the head brain and neck in the emergency room showed a dominant thyroid nodule on the left side that requires follow-up and biopsy came back benign MALIHA Gerardo Attn: Accounting,[address] [facility], [place], [address], [facility] 01/14/2024 19:00:50 5 text/html HypertensionReported by PatientPatient was increased to 100 mg of losartan and on amlodipine 10 mg daily DiabetesReported by PatientPatient is taking Farxiga 10 mg daily, she has been unable to tolerate metformin therapy due to GI issues Asthma F/UReported by PatientPatient is taking albuterol inhaler as needed and now on generic Symbicort therapy. She is still trying to get a nebulizer treatment but there were issues getting it with her insurance MALIHA Gerardo Attn: Accounting,[address] [facility], [place], [address], [facility] 03/29/2024 18:32:50 5 text/html HypertensionReported by PatientPatient was increased to 100 mg of losartan and on amlodipine 10 mg daily DiabetesReported by PatientPatient is taking Farxiga 10 mg daily, she has been unable to tolerate metformin therapy due to GI issues Asthma F/UReported by PatientPatient is taking albuterol inhaler as needed and now on generic Symbicort therapy. She is still trying to get a nebulizer treatment but there were issues getting it with her insurance Patient does have signs of sleep apnea. She has obesity and also some fatigue and daily headache upon waking MALIHA Gerardo Attn: Accounting[address] [facility], [place], [address], [facility] 06/03/2024 09:43:58 5 text/html HypertensionReported by PatientPatient was increased to 100 mg of losartan and on amlodipine 10 mg daily DiabetesReported by PatientPatient is taking Farxiga 10 mg daily, she has been unable to tolerate metformin therapy due to GI issues Asthma F/UReported by PatientPatient is taking albuterol inhaler as needed and now on generic Symbicort therapy. Recent labs were discussed at appointment and on her patient portal. Her white blood cell count still slightly elevated that we will continue to monitor closely it is currently at 13.0. Also her potassium needs to be is stable. increased to 20 mEq daily as she continues to be slightly low at 3.3. Liver enzymes are also stable Patient does have signs of sleep apnea. She has obesity and also some fatigue and daily headache upon waking MALIHA Gerardo Attn: Accounting,[address] [facility], [place], [address], [facility] 09/30/2024 12:13:34 OBGyn Episode No OBEpisode recorded.
--- OUTSIDE RECORDS SUMMARY | 2025-01-02 17:08 | XMS_ITS | Clinical Summary ---
Author Organization [facility] at the [facility] Address [address] [place], [place] [address] Care Team Providers Care Network Systems Operator Name Role Phone Kavya Perez Primary Care Pr ovider Allergies No known active allergies Encounters Date Type Department Care Team Description 11/25/2024 7:18 AM CDT - 11/25/2024 11:59 PM CDT Hospital Encounter [facility] [address] [place] [address] Rad, Amh Fluoro Dysphagia, unspecified type; Gastroesophageal reflux disease without esophagitis; Disorder of thyroid Discharge Disposition: Discharge to home or self care from Last 3 Months Social History Tobacco Use Types Packs/Day Years Used Date Smoking Tobacco: Never Assessed Comments Unknown Sex and Gender Information Value Date Recorded Sex Assigned at Not on file Legal Sex Unknown 11/14/2024 3:39 PM CDT Gender Identity Not on file Sexual Orientation Not on file Plan of Treatment Health Maintenance Due Date Last Done Comments Depression Screening 1990 Hepatitis C Screening 1990 DTaP/Tdap/Td Vaccine (1 - Tdap) 2001 Varicella Vaccines (1 of 2 - 13+ 2-dose series) 11/08/2003 Regular Well Visit/Exam 18-64 2008 Pneumococcal vaccine <65 (1 of 2 - PCV) 2009 HPV Vaccines (1 - 3-dose SCD M series) 2017 Covid-19 Vaccine (2024-2 6 season) 2024 01/21/2024, 12/17/2022, 12/26/2021, Additional history exists Hepatitis B Screening Completed 11/10/2024 Influenza Vaccine Completed 11/10/2024, , 11/22/2021, Additional history exists Procedures Procedure Name Priority Date/Time Associated Diagnosis Comments FL ESOPHAGRAM, SINGLE CONTRAST Schedule Routine, Read Routine (OP Routine) 11/25/2024 7:47 AM CDT Dysphagia, unspecified type Gastroesophageal reflux disease without esophagitis Disorder of thyroid from Last 3 Months Results * FL Esophagram, Single Contrast (11/25/2024 7:47 AM CDT) Anatomical Region Laterality Modality Body N/A Radio Fluoroscop y 11/25/2024 8:39 AM CDT Narrative 11/25/2024 8:42 AM CDT EXAM DESCRIPTION: FL ESOPHAGRAM BARIUM SWALLOW TO STOMACH, SINGLE CONTRAST REASON FOR STUDY: Dysphagia, GERD Liquids feel like they stuck several weeks No surgery to throat or neck Solids and pills ok 1.6 min ft 40.6 mgy RADIATION DOSE: Dose: 40.60 mGy Reference Air Kerma (Ka,r) TECHNIQUE: Under fluoroscopic guidance, patient ingested effervescent granules followed by thick and thin barium. COMPARISON: None. FINDINGS: 12.5 mm Barium Tablet: No significant delay in passage. ESOPHAGEAL MOTILITY: Normal peristalsis. No esophageal spasm. ESOPHAGEAL MUCOSA: No obvious mass, stricture, or diverticulum. GASTRO-ESOPHAGEAL JUNCTION: No significant hiatal hernia or gastroesophageal reflux observed. NON-GI TRACT STRUCTURES: Scoliotic curvature of the thoracic spine. OTHER: No other significant finding. IMPRESSION: Unremarkable esophagram. No significant hiatal hernia or gastroesophageal reflux observed. THIS IS AN ELECTRONICALLY VERIFIED FINAL REPORT 11/25/2024 8:42 AM - Electronically signed by Benjamín Garcia M.D. NS: NS Report ID: [id number] Reading Location: [id number] Procedure Note Benjamín Garcia MD - 11/25/2024 EXAM DESCRIPTION: FL ESOPHAGRAM BARIUM SWALLOW TO STOMACH, SINGLECONTRAST REASON FOR STUDY: Dysphagia, GERD Liquids feel like they stuck several weeks No surgery to throat or neck Solids and pills ok 1.6 min ft 40.6 mgy RADIATION DOSE: Dose: 40.60 mGy Reference Air Kerma (Ka,r) TECHNIQUE: Under fluoroscopic guidance, patient ingested effervescentgranules followed by thick and thin barium. COMPARISON: None. FINDINGS: 12.5 mm Barium Tablet: No significant delay in passage. ESOPHAGEAL MOTILITY: Normal peristalsis. No esophageal spasm. ESOPHAGEAL MUCOSA: No obvious mass, stricture, or diverticulum. GASTRO-ESOPHAGEAL JUNCTION: No significant hiatal hernia orgastroesophageal reflux observed. NON-GI TRACT STRUCTURES: Scoliotic curvature of the thoracic spine. OTHER: No other significant finding. IMPRESSION: Unremarkable esophagram. No significant hiatal hernia orgastroesophageal reflux observed. THIS IS AN ELECTRONICALLY VERIFIED FINAL REPORT 11/25/2024 8:42 AM - Electronically signed by Benjamín Garcia M.D. NS: NS Report ID: [id number] Reading Location: [place] [address] Vinnie Peralta MD IMG FLUOROSCOPY PROCEDURES Final Result from Last 3 Months Insurance [facility] HMO/PPO Address: [facility] [id number] [place] [address] Care Teams Network Systems Operator Relationship Specialty Start Date End Date Kavya Perez PA [address] [place] [address] PCP - General Physician Cement Gun Operator 11/16/24
== END 2025-01-02 08:23 | disposition home or self-care (01) ==
LOC: ANHAUDASC 08:22
PROVIDERS: PCP Physician Assistant; Visit Provider Otolaryngology
DX: H90.3 Sensorineural hearing loss, bilateral (principal); H93.13 Tinnitus, bilateral; D33.3 Benign neoplasm of cranial nerves
CPT/HCPCS: 92557; 92567

== ENCOUNTER 2025-02-01 08:59 | Outpatient (CLI) | payer OTHER, SELFPAY ==
--- OUTSIDE RECORDS SUMMARY | 2025-02-01 09:03 | XMS_ITS | Clinical Summary ---
Author Organization [facility] at the [facility] Address [address] [place], [place] [address] Care Team Providers Care Production Drilling Machine Operator Name Role Phone Kavya Perez Primary Care Pr ovider Allergies No known active allergies Encounters Date Type Department Care Team Description 11/25/2024 7:18 AM CDT - 11/25/2024 11:59 PM CDT Hospital Encounter [facility] [address] [place] [address] Rad, Amh Fluoro Dysphagia, unspecified type; Gastroesophageal [...] Benjamín Garcia M.D. NS: NS Report ID: [id number] Reading Location: [id number] Procedure Note Benjamín Garcia MD - 11/25/2024 [...] Benjamín Garcia M.D. NS: NS Report ID: [id number] Reading Location: [place] [address] Vinnie Peralta MD IMG FLUOROSCOPY PROCEDURES Final Result from Last 3 Months Insurance [facility] HMO/PPO Address: [facility] [id number] [place] [address] Care Teams Production Drilling Machine Operator Relationship Specialty Start Date End Date Kavya Perez PA [address] [place] [address] PCP - General Physician Parking Patroller 11/16/24
--- OUTSIDE RECORDS SUMMARY | 2025-02-01 09:03 | XMS_ITS | Clinical Summary ---
Author Organization [facility] Address [address] [place] [address] Phone Care Team Providers Care Grease And Tallow Pumper Name Role Phone Kavya Perez Primary Care Provider [phone] Medications traMADol (ULTRAM) 50 MG TabletIndicatio ns:Chest [...] Virus (HCV) Screening 1990 TdaP Immunization 1990 Varicella Immunization (1 of 2 - 13+ 2-dose series) 11/08/2003 Hepatitis B Immunization (1 of 3 - [...] patient's age to complete this topic Insurance [facility] [employer] Member Subscriber Plan / Payer (Ef fective 2022-Present) Name:Regine Galaviz Member ID:[id number] Relation to Subscriber:Self Name:Regine Galaviz Subscriber ID:[id number] Payer ID:PAPER Group ID:Not on file Type:Not on file Address: [address] [place] [address] Care Teams Grease And Tallow Pumper Relationship Specialty Start Date End Date Kavya Perez PA PCP - General Family Medicine 08/19/22
[2025-02-01 10:17] LABS: Hematocrit 44.9 % (37.0-47.0); Hemoglobin 14.4 g/dL (12.0-15.0); Immature Granulocyte Percent A 0.5 % (0-0.5); Lymphocytes Absolute Auto 2.72 K/mm3 (0.9-3.2); Mean Corpuscular HGB Conc 32.1 g/dl (32-36); Mean Corpuscular Hemoglobin 26.5 pg (26-34); Mean Corpuscular Volume 82.5 fl (80-100); Nucleated Red Blood Cells Absolute Auto 0.000 K/mm3 (0.0-0.012); Nucleated Red Blood Cells Perc 0.0 % (0.0-0.2); Platelet Count Result 305 k/mm3 (150-375); Red Blood Count 5.44 M/mm3 (4.2-5.4); White Blood Count 10.1 K/mm3 (4.5-10.0)
[2025-02-01 10:28] LABS: Hemoglobin A1C 6.4 % (<5.7)
[2025-02-01 10:41] LABS: Alanine Aminotransferase 58 U/L (6-35); Albumin Level 4.0 g/dL (3.5-5.1); Alkaline Phosphatase 70 U/L (38-126); Anion Gap 8 mmol/L (4-12); Aspartate Amino Transferase 47 U/L (14-36); Bilirubin,Total 0.5 mg/dL (0.2-1.3); Blood Urea Nitrogen 13 mg/dL (7-17); Calcium 9.0 mg/dL (8.4-10.2); Carbon Dioxide 22 mmol/L (22-30); Chloride 106 mmol/L (98-107); Cholesterol 164 mg/dL (0-200); Estimated Glomerular Filt Rate > 60; Glucose 105 mg/dL (65-110); HDL Direct 57 mg/dL; Potassium 4.3 mmol/L (3.4-5.0); Sodium 136 mmol/L (137-145); Total Protein 7.4 g/dL (6.3-8.2); Triglycerides 148 mg/dL (<150)
[2025-02-01 10:43] LABS: MALB Creatinine Ratio 13.0 mg/g (0-30)
[2025-02-01 11:16] LABS: Free T4 Free Thyroxine 0.90 ng/dL (0.78-2.19)
[2025-02-01 11:25] LABS: Thyroid Stimulating Hormone 1.090 uIU/mL (0.465-4.680)
[2025-02-01 12:00] LABS: Vitamin B12 311.0 pg/mL (239-931)
== END 2025-02-01 09:00 | disposition home or self-care (01) ==
LOC: ANHLAB 09:01
PROVIDERS: PCP Physician Assistant; Visit Provider Physician Assistant
DX: E78.5 Hyperlipidemia, unspecified (principal); E11.9 Type 2 diabetes mellitus without complications; D72.829 Elevated white blood cell count, unspecified; Z79.899 Other long term (current) drug therapy
CPT/HCPCS: 36415; 80053; 80061; 82043; 82607; 82746; 83036; 84439; 84443; 85025